=== PATIENT | male | born 1950 | race Caucasian/White ===

== ENCOUNTER 2017-06-15 15:19 | Observation (INO) | payer MEDICARE ==
[~2017-06-15] VITALS: Ht 170.2 cm; Wt 63.5 kg
[~2017-06-15 15:19] MED LIST: ALPR-557 GT; ALPR0.5T3 PO; CARV12.53 PO; CARV25TA PO; HYDR-2890 PO; TRAZ-144 PO
[2017-06-15] MEDS ORDERED: morphine INJ 10 MG/ML 1ML (SYR OR VIAL) IVP STA (16:05)
[2017-06-15] MEDS ORDERED: NS IV 1000 ML 1,000 ML IV ONE (16:05)
[2017-06-15 16:18] LABS: BILIRUBIN,URINE NEGATIVE (NEGATIVE); KETONES,URINE NEGATIVE (NEGATIVE); LEUKOCYTE ESTERASE ,URINE NEGATIVE (NEGATIVE); NITRITE,URINE NEGATIVE (NEGATIVE); PH,URINE 8 (5-9); PROTEIN,URINE NEGATIVE (NEGATIVE); UROBILINOGEN,URINE NORMAL (NORMAL)
[2017-06-15 16:20] LABS: BASOPHILS % (AUTO) 0 % (0-10); EOSINOPHILS # (AUTO) 0.3 10^3/uL (0.0-0.3); EOSINOPHILS % (AUTO) 2 % (0-10); LYMPHOCYTES # (AUTO) 2.4 X 10^3 (1.0-4.0); LYMPHOCYTES % (AUTO) 20 % (12-44); MEAN CORPUSCULAR HEMOGLOBIN 30 PG (25-34); MEAN CORPUSCULAR HGB CONC 33 G/DL (32-36); MEAN CORPUSCULAR VOLUME 89 FL (80-99); MEAN PLATELET VOLUME 9.7 FL (7.4-10.4); MONOCYTES # (AUTO) 1.8 X 10^3 (0.0-1.0); MONOCYTES % (AUTO) 15 % (0-12); NEUTROPHILS # (AUTO) 7.4 X 10^3 (1.8-7.8); NEUTROPHILS % (AUTO) 63 % (42-75); PLATELET COUNT 181 10^3/uL (130-400); RED BLOOD COUNT 5.04 10^6/uL (4.35-5.85); RED CELL DISTRIBUTION WIDTH 12.9 % (10.0-14.5); WHITE BLOOD COUNT 11.8 10^3/uL (4.3-11.0)
[2017-06-15 16:42] LABS: ALANINE AMINOTRANSFERASE 22 U/L (0-55); ALBUMIN 4.1 GM/DL (3.2-4.5); ANION GAP 11 MMOL/L (5-14); ASPARTATE AMINO TRANSFERASE 18 U/L (5-34); BILIRUBIN,TOTAL 1.1 MG/DL (0.1-1.0); CALCIUM 9.3 MG/DL (8.5-10.1); CARBON DIOXIDE 26 MMOL/L (21-32); CHLORIDE 104 MMOL/L (98-107); CREATININE SERUM 0.88 MG/DL (0.60-1.30); GFR ESTIMATED > 60; GLUCOSE 92 MG/DL (70-105); POTASSIUM 4.1 MMOL/L (3.6-5.0); SODIUM 141 MMOL/L (135-145); TOTAL PROTEIN 6.7 GM/DL (6.4-8.2)
[2017-06-15] MEDS ORDERED: NS 100 ML (IVPB) BAG IV ONE (17:00)
[2017-06-15] MEDS ORDERED: IOHEXOL 350 MG/ML 100 ML (OMNIPAQUE 350) VIAL IV ONE (17:00)
[2017-06-15 17:33] LABS: BLOOD UREA NITROGEN 15 MG/DL (7-18); BUN/CREATININE RATIO 17
--- NOTE | 2017-06-15 17:34 | ED Abdominal Pain ---
General Chief Complaint: Abdominal/GI Problems Stated Complaint: ABDOMINAL PAIN Nursing Triage Note: Pt c/o abd tenderness x24 hours. Pt denies n/v/d. Pt also c/o general malaise. Sepsis Screen: No Definite Risk History of Present Illness Time Seen By Provider: 15:50 Initial Comments Evaluation for acute abdominal pain. Patient was evaluated in Dr. Benitez's office earlier today and referred here for further exams. Timing/Duration: 1-2 Days Severity/Quality: Moderate (4-6/10) Location: Generalized Abdomen Radiation: No Radiation Activities at Onset: None Modifying Factors: Improves With Resting Associated Symptoms: Denies Symptoms Allergies and Home Medications Allergies Uncoded Allergies: antivenom (Allergy, Unknown, 06/27/14) Home Medications Alprazolam 0.5 Mg Tab, 0.5 MG GT HS, (Reported) Alprazolam 0.5 Mg Tab.sr.24h, 0.5 MG PO HS, (Reported) Carvedilol 12.5 Mg Tablet, 1 EACH PO AM, (Reported) Carvedilol 25 Mg Tablet, 1 EACH PO PM, (Reported) 18MG IN THE AM Hydrocodone Bit/Acetaminophen 1 Each Tablet, 1 EACH PO, (Reported) Trazodone Hcl 50 Mg Tablet, 100 MG PO for HS, (Reported) Review of Systems Constitutional: no symptoms reported, see HPI Gastrointestinal: See HPI, Abdominal Pain, Denies Diarrhea, Denies Nausea, Poor Appetite, Denies Vomiting All Other Systems Reviewed Negative Unless Noted: Yes Past Qhnyruc-Wzyelb-Gdakml Hx Patient Social History Alcohol Use: Denies Use Recreational Drug Use: No Smoking Status: Never a Smoker Recent Foreign Travel: No Contact w/Someone Who Travel: No Recent Infectious Disease Expo: No Recent Hopitalizations: No Seasonal Allergies Seasonal Allergies: No Surgeries HX Surgeries: Yes (HERNIA ) Respiratory Hx Respiratory Disorders: No Cardiovascular Hx Cardiac Disorders: Yes (PACEMAKER ) Neurological Hx Neurological Disorders: No Reviewed Nursing Assessment Reviewed/Agree w Nursing PMH: Yes Physical Exam Vital Signs VS - Last 72 Hours, by Label 06/15/17 16:02 Temp 100.3 Pulse 79 Resp 18 B/P (MAP) 127/76 Pulse Ox 98 O2 Delivery Room Air Capillary Refill : Less Than 3 Seconds General Appearance: WD/WN, no apparent distress HEENT: PERRL/EOMI, normal ENT inspection, TMs normal, pharynx normal Neck: non-tender, full range of motion, supple, normal inspection Respiratory: chest non-tender, lungs clear, normal breath sounds Cardiovascular: normal peripheral pulses, regular rate, rhythm, other ( pacemaker present) Gastrointestinal: normal bowel sounds, soft, No distended, guarding, No rebound , tenderness (generalized), other (negative Gonzalez sign) Extremities: normal range of motion, non-tender, normal inspection, no pedal edema, no calf tenderness, normal capillary refill Back: normal inspection, no CVA tenderness Neurologic/Psychiatric: no motor/sensory deficits, alert, normal mood/affect, oriented x 3 Skin: normal color, warm/dry Lymphatic: no adenopathy Progress/Results/Core Measures Results/Orders Lab Results Laboratory Tests Test 06/15/17 16:08 06/15/17 16:12 Range/Units Urine Color YELLOW Urine Clarity CLEAR Urine pH 8 5-9 Urine Specific Amity 1.010 L 1.016-1.022 Urine Protein NEGATIVE NEGATIVE Urine Glucose (UA) NEGATIVE NEGATIVE Urine Ketones NEGATIVE NEGATIVE Urine Nitrite NEGATIVE NEGATIVE Urine Bilirubin NEGATIVE NEGATIVE Urine Urobilinogen NORMAL NORMAL MG/DL Urine Leukocyte Esterase NEGATIVE NEGATIVE Urine RBC (Auto) 1+ H NEGATIVE Urine RBC 0-2 /HPF Urine WBC NONE /HPF Urine Crystals NONE /LPF Urine Bacteria NONE /HPF Urine Casts NONE /LPF Urine Mucus NEGATIVE /LPF Urine Culture Indicated NO White Blood Count 11.8 H 4.3-11.0 10^3/uL Red Blood Count 5.04 4.35-5.85 10^6/uL Hemoglobin 14.9 13.3-17.7 G/DL Hematocrit 45 40-54 % Mean Corpuscular Volume 89 80-99 FL Mean Corpuscular Hemoglobin 30 25-34 PG Mean Corpuscular Hemoglobin Concent 33 32-36 G/DL Red Cell Distribution Width 12.9 10.0-14.5 % Platelet Count 181 130-400 10^3/uL Mean Platelet Volume 9.7 7.4-10.4 FL Neutrophils (%) (Auto) 63 42-75 % Lymphocytes (%) (Auto) 20 12-44 % Monocytes (%) (Auto) 15 H 0-12 % Eosinophils (%) (Auto) 2 0-10 % Basophils (%) (Auto) 0 0-10 % Neutrophils # (Auto) 7.4 1.8-7.8 X 10^3 Lymphocytes # (Auto) 2.4 1.0-4.0 X 10^3 Monocytes # (Auto) 1.8 H 0.0-1.0 X 10^3 Eosinophils # (Auto) 0.3 0.0-0.3 10^3/uL Basophils # (Auto) 0.0 0.0-0.1 10^3/uL Sodium Level 141 135-145 MMOL/L Potassium Level 4.1 3.6-5.0 MMOL/L Chloride Level 104 98-107 MMOL/L Carbon Dioxide Level 26 21-32 MMOL/L Anion Gap 11 5-14 MMOL/L Blood Urea Nitrogen 15 7-18 MG/DL Creatinine 0.88 0.60-1.30 MG/DL Estimat Glomerular Filtration Rate > 60 BUN/Creatinine Ratio 17 Glucose Level 92 70-105 MG/DL Calcium Level 9.3 8.5-10.1 MG/DL Total Bilirubin 1.1 H 0.1-1.0 MG/DL Aspartate Amino Transf (AST/SGOT) 18 5-34 U/L Alanine Aminotransferase (ALT/SGPT) 22 0-55 U/L Alkaline Phosphatase 22 L 40-136 U/L Total Protein 6.7 6.4-8.2 GM/DL Albumin 4.1 3.2-4.5 GM/DL My Orders Orders - SAWYER MARSHALL Cbc With Automated Diff (06/15/17 16:04) Comprehensive Metabolic Panel (06/15/17 16:04) Ua Culture If Indicated (06/15/17 16:04) Ct Abdomen/Pelvis W (06/15/17 16:04) Saline Lock/Iv-Start (06/15/17 16:05) Ns Iv 1000 Ml (Sodium Chloride 0.9%) (06/15/17 16:05) Morphine Injection (Morphine Injection (06/15/17 16:05) Iohexol Injection (Omnipaque 350 Mg/Ml 1 (06/15/17 17:00) Ns (Ivpb) (Sodium Chloride 0.9% Ivpb Bag (06/15/17 17:00) Medications Given in ED Current Medications Medications Dose Ordered Sig/Angel Route Start Time Stop Time Status Last Admin Dose Admin Iohexol 100 ml ONCE ONCE IV 06/15/17 17:00 06/15/17 17:01 DC 06/15/17 17:13 100 ML Sodium Chloride 100 ml ONCE ONCE IV 06/15/17 17:00 06/15/17 17:01 DC 06/15/17 17:13 80 ML Sodium Chloride 1,000 ml @ 0 mls/hr Q0M ONCE IV 06/15/17 16:05 06/15/17 16:07 DC 06/15/17 16:19 999 MLS/HR Vital Signs/I&O Vital Sign - Last 12Hours 06/15/17 16:02 Temp 100.3 Pulse 79 Resp 18 B/P (MAP) 127/76 Pulse Ox 98 O2 Delivery Room Air Blood Pressure Mean: 93 Progress Note : Time: 15:50 Progress Note Initial evaluation completed, we'll obtain CT abdomen and pelvis, CBC, UA and CMP. IV 1 L normal saline, morphine 5 mg IV for pain. 1645 results of studies reviewed with patient. Pain is currently minimal. He denies any need for additional pain medication and has no nausea. 1720 discussed results of exam, labs and diagnostic studies with Dr. Benitez, agreed admission is indicated with recommendations for consulting Dr. Willett for general surgery tomorrow. Diagnostic Imaging Diagonstic Imaging: CT Plain Films/CT/US/NM/MRI: abdomen, pelvis Comments NAME: BRIANNE ZELAYA Janey [facility] REC#: [id number] PT STATUS: REG ER : 1950 PHYSICIAN: SAWYER MARSHALL ADMIT DATE: 06/15/17/ER Draft Date of Exam:06/15/17 CT ABDOMEN/PELVIS W PROCEDURE: CT abdomen and pelvis with contrast. TECHNIQUE: Multiple contiguous axial images were obtained through the abdomen and pelvis after administration of intravenous contrast. INDICATION: Abdominal pain, history of hernia. COMPARISON: 06/06/2015. FINDINGS: Lung bases are clear. The gallbladder and solid organs are grossly normal. Vascular structures are intact. The course and caliber of the small bowel is normal. There is no free air or free fluid. There is moderate inflammatory change with diverticulosis of the sigmoid colon. This likely represents nonruptured diverticulitis. There is no abscess. Trace free fluid is seen. Distal ureters and urinary bladder are grossly normal. 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 This is unchanged. Osseous structures are stable. IMPRESSION: 1. Diverticulosis with acute diverticulitis and associated trace free fluid in the pelvis. 2. No abscess or free air identified. 3. Follow-up examination is recommended to exclude inflammatory carcinoma of the sigmoid. Dictated on workstation # [id number] Dict: 06/15/17 1729 Trans: 06/15/17 1738 [id number] Interpreted by: LUZ KIRBY Electronically signed by: Reviewed: Reviewed by Me Departure Impression Impression: Primary Impression: Diverticulitis of intestine Qualified Codes: K57.32 - Diverticulitis of large intestine without perforation or abscess without bleeding Additional Impression: Abdominal wall pain Disposition: ADMITTED INPATIENT Condition: Stable Decision to Admit Reason: Admit from ER (General) Decision to Admit/Date: Jun 15, 2017 Time/Decision to Admit Time: 17:20 Departure-Patient Inst. Referrals: MERLIN BENITEZ DO (PCP/Family) Primary Care Physician Copy Copies To 1: MERLIN BENITEZ AMY ARNP Jun 15, 2017 17:34
--- NOTE | 2017-06-15 17:39 | Diagnostic Imaging Report ---
PROCEDURE: CT abdomen and pelvis with contrast. TECHNIQUE: Multiple contiguous axial images were obtained through the abdomen and pelvis after administration of intravenous contrast. INDICATION: Abdominal pain, history of hernia. COMPARISON: 06/06/2015. FINDINGS: Lung bases are clear. The gallbladder and solid organs are grossly normal. Vascular structures are intact. The course and caliber of the small bowel is normal. There is no free air or free fluid. There is moderate inflammatory change with diverticulosis of the sigmoid colon. This likely represents nonruptured diverticulitis. There is no abscess. Trace free fluid is seen. Distal ureters and urinary bladder are grossly normal. 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 This is unchanged. Osseous structures are stable. IMPRESSION: 1. Diverticulosis with acute diverticulitis and associated trace free fluid in the pelvis. 2. No abscess or free air identified. 3. Follow-up examination is recommended to exclude inflammatory carcinoma of the sigmoid. Dictated by: Dictated on workstation # [id number]
[2017-06-15 18:47] VITALS: BP 120/68
[2017-06-15] MEDS ORDERED: morphine INJ 10 MG/ML 1ML (SYR OR VIAL) IV PRN (19:15)
[2017-06-15] MEDS ORDERED: CATHETER FLUSH 10 ML SYR IV PRN (19:15)
[2017-06-15] MEDS ORDERED: ACETAMINOPHEN 325 MG TABLET/CAPLET (TYLENOL) PO PRN (19:15)
[2017-06-15] MEDS: NS IV 1000 ML 1,000 ML IV SCH (19:31)
[2017-06-15] MEDS: CIPROFLOXACIN IV 400MG/200ML 200 ML IV SCH (19:53)
[2017-06-15] MEDS ORDERED: metroNIDAZOLE 500MG/100ML IVPB 100 ML IV SCH (21:00)
[2017-06-15] MEDS ORDERED: RT-ALBUTEROL SULF 2.5 MG/3 ML PRE-MIX VIAL IH PRN (21:00)
[2017-06-16] VITALS: BP 89/51
[2017-06-16 04:00] VITALS: BP 86/51
[2017-06-16 05:31] LABS: BASOPHILS % (AUTO) 0 % (0-10); EOSINOPHILS # (AUTO) 0.1 10^3/uL (0.0-0.3); EOSINOPHILS % (AUTO) 1 % (0-10); LYMPHOCYTES # (AUTO) 1.8 X 10^3 (1.0-4.0); LYMPHOCYTES % (AUTO) 19 % (12-44); MEAN CORPUSCULAR HEMOGLOBIN 30 PG (25-34); MEAN CORPUSCULAR HGB CONC 33 G/DL (32-36); MEAN CORPUSCULAR VOLUME 90 FL (80-99); MEAN PLATELET VOLUME 9.8 FL (7.4-10.4); MONOCYTES # (AUTO) 1.5 X 10^3 (0.0-1.0); MONOCYTES % (AUTO) 16 % (0-12); NEUTROPHILS # (AUTO) 6.4 X 10^3 (1.8-7.8); NEUTROPHILS % (AUTO) 65 % (42-75); PLATELET COUNT 159 10^3/uL (130-400); RED BLOOD COUNT 4.26 10^6/uL (4.35-5.85); RED CELL DISTRIBUTION WIDTH 12.8 % (10.0-14.5); WHITE BLOOD COUNT 9.8 10^3/uL (4.3-11.0)
[2017-06-16 06:00] LABS: ALANINE AMINOTRANSFERASE 14 U/L (0-55); ALBUMIN 3.2 GM/DL (3.2-4.5); ANION GAP 7 MMOL/L (5-14); ASPARTATE AMINO TRANSFERASE 13 U/L (5-34); BILIRUBIN,TOTAL 1.1 MG/DL (0.1-1.0); BLOOD UREA NITROGEN 12 MG/DL (7-18); BUN/CREATININE RATIO 16; CALCIUM 8.2 MG/DL (8.5-10.1); CARBON DIOXIDE 24 MMOL/L (21-32); CHLORIDE 109 MMOL/L (98-107); CREATININE SERUM 0.75 MG/DL (0.60-1.30); GFR ESTIMATED > 60; GLUCOSE 106 MG/DL (70-105); POTASSIUM 3.9 MMOL/L (3.6-5.0); SODIUM 140 MMOL/L (135-145); TOTAL PROTEIN 5.2 GM/DL (6.4-8.2)
[2017-06-16 06:17] VITALS: BP 96/51
--- NOTE | 2017-06-16 07:48 | History & Physicial ---
History of Present Illness History of Present Illness Reason for visit/HPI chief complaint abdominal pain, GI problem. Patient came to the office yesterday complaining of abdominal pain onset Tuesday. Patient not eating yesterday. Pain radiated from 4 to 7 depending on the time. Pain is not localized all over the abdomen. Patient this morning is feeling better and demands to go home. Patient pain a 1 this morning. Date of Admission Jun 15, 2017 at 18:13 Time Seen by Provider: 07:40 I consulted on this patient on 06/16/17 07:43 Attending Physician Rodriguez Benitez DO Admitting Physician Rodriguez Benitez DO Consult Allergies and Home Medications Allergies Uncoded Allergies: antivenom (Allergy, Unknown, 06/27/14) Home Medications Alprazolam 0.5 Mg Tab, 0.5 MG GT HS, (Reported) Alprazolam 0.5 Mg Tab.sr.24h, 0.5 MG PO HS, (Reported) Carvedilol 12.5 Mg Tablet, 1 EACH PO AM, (Reported) Carvedilol 25 Mg Tablet, 1 EACH PO PM, (Reported) 18MG IN THE AM Hydrocodone Bit/Acetaminophen 1 Each Tablet, 1 EACH PO, (Reported) Trazodone Hcl 50 Mg Tablet, 100 MG PO for HS, (Reported) Past Wchvpfx-Ahlqpa-Rfwdry Hx Patient Social History Employed/Student: unemployed Alcohol Use: Denies Use Recreational Drug Use: No Smoking Status: Never a Smoker Physical Abuse Screen: No Sexual Abuse: No Recent Foreign Travel: No Contact w/other who traveled: No Recent Hopitalizations: No Recent Infectious Disease Expo: No Seasonal Allergies Seasonal Allergies: No Surgeries HX Surgeries: Yes (HERNIA ) Respiratory Hx Respiratory Disorders: No Cardiovascular Hx Cardiovascular Disorders: Yes (PACEMAKER ) Neurological Hx Neurological Disorders: No Reproductive System Sexually Transmitted Disease: No HIV/AIDS: No Musculoskeletal Musculoskeletal Disorders: Arthritis Cancer Cancer: Skin Blood Transfusions Adverse Reaction to a Blood Tr: No Reviewed Nursing Assessment Reviewed/Agree w Nursing PMH: Yes Family Medical History Family Hx: Diabetes mellitus G8 SISTER Constitutional: malaise, weakness, other (abdominal pain) EENTM: no symptoms reported Respiratory: no symptoms reported Cardiovascular: no symptoms reported Gastrointestinal: abdominal pain, other (abdominal pain all over the abdomen not localized) Genitourinary: no symptoms reported Skin: no symptoms reported Psychiatric/Neurological: No Symptoms Reported Physical Exam Vital Signs Vital Sign - Last 12Hours 06/15/17 16:02 Temp 100.3 Pulse 79 Resp 18 B/P (MAP) 127/76 Pulse Ox 98 O2 Delivery Room Air Capillary Refill : Less Than 3 Seconds General Appearance: No Apparent Distress, WD/WN, Thin Eyes: Bilateral Eye Normal Inspection HEENT: TMs Normal, Normal ENT Inspection Neck: Full Range of Motion, Normal Inspection Respiratory: Chest Non Tender, Lungs Clear, Normal Breath Sounds, No Accessory Muscle Use, No Respiratory Distress Cardiovascular: Regular Rate, Rhythm, No Murmur Gastrointestinal: Other (pain to palpation yesterday, better today) Assessment/Plan Assessment and Plan acute diverticulitis. Abdominal pain. Diverticulosis. Patient told he needs a colonoscopy. Have consult with surgeon to be done later. Patient demanding on going home. Patient sent home on a diverticulitis diet. Patient sent home on Flagyl and Cipro. 2 office on Tuesday. If has any problems to come back the left this before Problems: Clinical Quality Measures DVT/VTE Risk/Contraindication: Risk Factor Score Per Nursin RFS Level Per Nursing on Admit: 2=Moderate RODRIGUEZ BENITEZ DO Jun 16, 2017 07:48
[2017-06-16] MEDS: CIPROFLOXACIN IV 400MG/200ML 200 ML IV SCH (08:29)
[2017-06-16] MEDS: NS IV 1000 ML 1,000 ML IV SCH (08:44)
[2017-06-16 08:55] VITALS: BP 117/74
[2017-06-16] MEDS ORDERED: MELA1TAB15 PO (09:43)
[2017-06-16] MEDS ORDERED: UBID100C44 PO (09:43)
[2017-06-16] MEDS ORDERED: MAGN250T2 PO (09:43)
[2017-06-16] MEDS ORDERED: CARV25TA PO (09:43)
[2017-06-16] MEDS ORDERED: ALPR0.5T7 PO (09:43)
[2017-06-16] MEDS ORDERED: MULT1TAB69 PO (09:43)
[2017-06-16] MEDS ORDERED: TRAZ100T92 PO (09:43)
[2017-06-16] MEDS ORDERED: CIPR-225 PO (09:51)
[2017-06-16] MEDS ORDERED: METR500T PO (09:51)
[2017-06-16 10:15] VITALS: BP 117/74
--- NOTE | 2017-06-17 07:17 | Clinic Account Progress/Dx ---
Clinic Account Progress/Dx DIAGNOSIS: Time Seen by Provider: 07:15 Diagnosis acute abdominal pain due to sigmoid diverticulitis MERLIN BENITEZ DO Jun 17, 2017 07:17
--- OUTSIDE RECORDS SUMMARY | 2017-06-23 00:09 | XMS REPORT | Continuity of Care Document ---
Author Author [facility] Organization [facility] Address Unknown Phone Unavailable Allergies Active Description Code Type Severity Reaction Onset Reported/Identified Relationship to Patient Clinical Status Yes antivenom antivenom Unknown N/A 06/27/2014 Medications Problems Date Dx Coded Attending Type Code Diagnosis Diagnosed By 06/27/2014 OWEN RENO MD Ot 451.82 PHLEBITIS THROMBOPHLEBITIS,SUP VEINS U 06/27/2014 OWEN RENO MD Ot 729.81 SWELLING OF LIMB 07/02/2015 MERLIN BENITEZ DO Ot 783.21 07/02/2015 MERLIN BENITEZ DO Ot 593.9 07/21/2015 MERLIN BENITEZ DO Ot 783.21 06/21/2016 RADHA MCCLELLAN MD Ot G47.33 OBSTRUCTIVE SLEEP APNEA (ADULT) (PEDIATR 06/22/2016 RADHA MCCLELLAN MD Ot G47.33 OBSTRUCTIVE SLEEP APNEA (ADULT) (PEDIATR 06/22/2016 RADHA MCCLELLAN MD Ot R06.83 SNORING 06/30/2016 RADHA MCCLELLAN MD Ot R06.83 SNORING 11/19/2016 KERWIN MARTINEZ MD Ot R19.7 DIARRHEA, UNSPECIFIED 11/19/2016 KERWIN MARTINEZ MD Ot Z79.899 OTHER DETENTION (CURRENT) DRUG THERAPY 11/19/2016 KERWIN MARTINEZ MD Ot Z95.0 PRESENCE OF CARDIAC PACEMAKER 11/21/2016 MERLIN BENITEZ DO Ot 783.21 LOSS OF WEIGHT 11/21/2016 MERLIN BENITEZ DO Ot 593.9 RENAL URETERAL DIS NOS 11/23/2016 KERWIN MARTINEZ MD Ot R19.7 DIARRHEA, UNSPECIFIED 11/23/2016 KERWIN MARTINEZ MD Ot Z79.899 OTHER DETENTION (CURRENT) DRUG THERAPY 11/23/2016 KERWIN MARTINEZ MD Ot Z95.0 PRESENCE OF CARDIAC PACEMAKER 06/15/2017 MERLIN BENITEZ DO Ot 783.21 LOSS OF WEIGHT 06/15/2017 MERLIN BENITEZ DO Ot 593.9 RENAL URETERAL DIS NOS 06/16/2017 MERLIN BENITEZ DO Ot K57.32 DVTRCLI OF LG INT W/O PERFORATION OR ABS 06/16/2017 MERLIN BENITEZ DO Ot Z79.899 OTHER DETENTION (CURRENT) DRUG THERAPY 06/16/2017 MERLIN BENITEZ DO Ot Z95.0 PRESENCE OF CARDIAC PACEMAKER Procedures Results Test Result Range Complete blood count (CBC) with automated white blood cell (WBC) differential - 11/19/16 11:55 Blood leukocytes automated count (number/volume) 6.5 10*3/ uL 4.3-11.0 Blood erythrocytes automated count (number/volume) 5.18 10*6 /uL 4.35-5.85 Venous blood hemoglobin measurement (mass/volume) 15.3 g/dL 13.3-17.7 Blood hematocrit (volume fraction) 45 % 40-54 Automated erythrocyte mean corpuscular volume 87 [foz_us] 80-99 Automated erythrocyte mean corpuscular hemoglobin (mass per erythrocyte) 30 pg 25-34 Automated erythrocyte mean corpuscular hemoglobin concentration measurement ( mass/volume) 34 g/dL 32-36 Automated erythrocyte distribution width ratio 12.7 % 10.0-14.5 Automated blood platelet count (count/volume) 206 10*3/uL 130-400 Automated blood platelet mean volume measurement 9.8 [foz_us ] 7.4-10.4 Automated blood neutrophils/100 leukocytes 47 % 42-75 Automated blood lymphocytes/100 leukocytes 32 % 12-44 Blood monocytes/100 leukocytes 16 % 0-12 Automated blood eosinophils/100 leukocytes 5 % 0-10 Automated blood basophils/100 leukocytes 0 % 0-10 Blood neutrophils automated count (number/volume) 3.1 10*3 1.8-7.8 Blood lymphocytes automated count (number/volume) 2.1 10*3 1.0-4.0 Blood monocytes automated count (number/volume) 1.0 10*3 0.0-1.0 Automated eosinophil count 0.3 10*3/uL 0.0-0.3 Automated blood basophil count (count/volume) 0.0 10*3/uL 0.0-0.1 Comprehensive metabolic panel - 11/19/16 11:55 Serum or plasma sodium measurement (moles/volume) 140 mmol/ L 135-145 Serum or plasma potassium measurement (moles/volume) 3.9 mmol/L 3.6-5.0 Serum or plasma chloride measurement (moles/volume) 107 mmol /L 98-107 Carbon dioxide 24 mmol/L 21-32 Serum or plasma anion gap determination (moles/volume) 9 mmol/L 5-14 Serum or plasma urea nitrogen measurement (mass/volume) 17 mg/dL 7-18 Serum or plasma creatinine measurement (mass/volume) 0.90 mg /dL 0.60-1.30 Serum or plasma urea nitrogen/creatinine mass ratio 19 NRG Serum or plasma creatinine measurement with calculation of estimated glomerular filtration rate > NRG Serum or plasma glucose measurement (mass/volume) 88 mg/dL 70-105 Serum or plasma calcium measurement (mass/volume) 9.4 mg/dL 8.5-10.1 Serum or plasma total bilirubin measurement (mass/volume) 0.8 mg/dL 0.1-1.0 Serum or plasma alkaline phosphatase measurement (enzymatic activity/volume) 21 U/L 40-136 Serum or plasma aspartate aminotransferase measurement (enzymatic activity/ volume) 24 U/L 5-34 Serum or plasma alanine aminotransferase measurement (enzymatic activity/volume ) 33 U/L 0-55 Serum or plasma protein measurement (mass/volume) 6.4 g/dL 6.4-8.2 Serum or plasma albumin measurement (mass/volume) 4.4 g/dL 3.2-4.5 Complete urinalysis with reflex to culture - 11/19/16 12:31 Urine color determination YELLOW NRG Urine clarity determination CLEAR NRG Urine pH measurement by test strip 8 5- 9 Specific gravity of urine by test strip 1.010 1.016-1.022 Urine protein assay by test strip, semi-quantitative NEGATIVE NEGATIVE Urine glucose detection by automated test strip NEGATIVE NEGATIVE Erythrocytes detection in urine sediment by light microscopy NEGATIVE NEGATIVE Urine ketones detection by automated test strip NEGATIVE NEGATIVE Urine nitrite detection by test strip NEGATIVE NEGATIVE Urine total bilirubin detection by test strip NEGATIVE NEGATIVE Urine urobilinogen measurement by automated test strip (mass/volume) NORMAL NORMAL Urine leukocyte esterase detection by dipstick NEGATIVE NEGATIVE Automated urine sediment erythrocyte count by microscopy (number/high power field) NONE NRG Automated urine sediment leukocyte count by microscopy (number/high power field ) NONE NRG Bacteria detection in urine sediment by light microscopy NEGATIVE NRG Squamous epithelial cells detection in urine sediment by light microscopy NONE NRG Crystals detection in urine sediment by light microscopy NONE NRG Casts detection in urine sediment by light microscopy NONE NRG Mucus detection in urine sediment by light microscopy NEGATIVE NRG Complete urinalysis with reflex to culture NO NRG Complete urinalysis with reflex to culture - 06/15/17 16:08 Urine color determination YELLOW NRG Urine clarity determination CLEAR NRG Urine pH measurement by test strip 8 5- 9 Specific gravity of urine by test strip 1.010 1.016-1.022 Urine protein assay by test strip, semi-quantitative NEGATIVE NEGATIVE Urine glucose detection by automated test strip NEGATIVE NEGATIVE Erythrocytes detection in urine sediment by light microscopy 1+ NEGATIVE Urine ketones detection by automated test strip NEGATIVE NEGATIVE Urine nitrite detection by test strip NEGATIVE NEGATIVE Urine total bilirubin detection by test strip NEGATIVE NEGATIVE Urine urobilinogen measurement by automated test strip (mass/volume) NORMAL NORMAL Urine leukocyte esterase detection by dipstick NEGATIVE NEGATIVE Automated urine sediment erythrocyte count by microscopy (number/high power field) [HPF] NRG Automated urine sediment leukocyte count by microscopy (number/high power field ) NONE NRG Bacteria detection in urine sediment by light microscopy NONE NRG Crystals detection in urine sediment by light microscopy NONE NRG Casts detection in urine sediment by light microscopy NONE NRG Mucus detection in urine sediment by light microscopy NEGATIVE NRG Complete urinalysis with reflex to culture NO NRG Complete blood count (CBC) with automated white blood cell (WBC) differential - 06/15/17 16:12 Blood leukocytes automated count (number/volume) 11.8 10*3/ uL 4.3-11.0 Blood erythrocytes automated count (number/volume) 5.04 10*6 /uL 4.35-5.85 Venous blood hemoglobin measurement (mass/volume) 14.9 g/dL 13.3-17.7 Blood hematocrit (volume fraction) 45 % 40-54 Automated erythrocyte mean corpuscular volume 89 [foz_us] 80-99 Automated erythrocyte mean corpuscular hemoglobin (mass per erythrocyte) 30 pg 25-34 Automated erythrocyte mean corpuscular hemoglobin concentration measurement ( mass/volume) 33 g/dL 32-36 Automated erythrocyte distribution width ratio 12.9 % 10.0-14.5 Automated blood platelet count (count/volume) 181 10*3/uL 130-400 Automated blood platelet mean volume measurement 9.7 [foz_us ] 7.4-10.4 Automated blood neutrophils/100 leukocytes 63 % 42-75 Automated blood lymphocytes/100 leukocytes 20 % 12-44 Blood monocytes/100 leukocytes 15 % 0-12 Automated blood eosinophils/100 leukocytes 2 % 0-10 Automated blood basophils/100 leukocytes 0 % 0-10 Blood neutrophils automated count (number/volume) 7.4 10*3 1.8-7.8 Blood lymphocytes automated count (number/volume) 2.4 10*3 1.0-4.0 Blood monocytes automated count (number/volume) 1.8 10*3 0.0-1.0 Automated eosinophil count 0.3 10*3/uL 0.0-0.3 Automated blood basophil count (count/volume) 0.0 10*3/uL 0.0-0.1 Comprehensive metabolic panel - 06/15/17 16:12 Serum or plasma sodium measurement (moles/volume) 141 mmol/ L 135-145 Serum or plasma potassium measurement (moles/volume) 4.1 mmol/L 3.6-5.0 Serum or plasma chloride measurement (moles/volume) 104 mmol /L 98-107 Carbon dioxide 26 mmol/L 21-32 Serum or plasma anion gap determination (moles/volume) 11 mmol/L 5-14 Serum or plasma urea nitrogen measurement (mass/volume) 15 mg/dL 7-18 Serum or plasma creatinine measurement (mass/volume) 0.88 mg /dL 0.60-1.30 Serum or plasma urea nitrogen/creatinine mass ratio 17 NRG Serum or plasma creatinine measurement with calculation of estimated glomerular filtration rate > NRG Serum or plasma glucose measurement (mass/volume) 92 mg/dL 70-105 Serum or plasma calcium measurement (mass/volume) 9.3 mg/dL 8.5-10.1 Serum or plasma total bilirubin measurement (mass/volume) 1.1 mg/dL 0.1-1.0 Serum or plasma alkaline phosphatase measurement (enzymatic activity/volume) 22 U/L 40-136 Serum or plasma aspartate aminotransferase measurement (enzymatic activity/ volume) 18 U/L 5-34 Serum or plasma alanine aminotransferase measurement (enzymatic activity/volume ) 22 U/L 0-55 Serum or plasma protein measurement (mass/volume) 6.7 g/dL 6.4-8.2 Serum or plasma albumin measurement (mass/volume) 4.1 g/dL 3.2-4.5 Complete blood count (CBC) with automated white blood cell (WBC) differential - 06/16/17 04:58 Blood leukocytes automated count (number/volume) 9.8 10*3/ uL 4.3-11.0 Blood erythrocytes automated count (number/volume) 4.26 10*6 /uL 4.35-5.85 Venous blood hemoglobin measurement (mass/volume) 12.6 g/dL 13.3-17.7 Blood hematocrit (volume fraction) 38 % 40-54 Automated erythrocyte mean corpuscular volume 90 [foz_us] 80-99 Automated erythrocyte mean corpuscular hemoglobin (mass per erythrocyte) 30 pg 25-34 Automated erythrocyte mean corpuscular hemoglobin concentration measurement ( mass/volume) 33 g/dL 32-36 Automated erythrocyte distribution width ratio 12.8 % 10.0-14.5 Automated blood platelet count (count/volume) 159 10*3/uL 130-400 Automated blood platelet mean volume measurement 9.8 [foz_us ] 7.4-10.4 Automated blood neutrophils/100 leukocytes 65 % 42-75 Automated blood lymphocytes/100 leukocytes 19 % 12-44 Blood monocytes/100 leukocytes 16 % 0-12 Automated blood eosinophils/100 leukocytes 1 % 0-10 Automated blood basophils/100 leukocytes 0 % 0-10 Blood neutrophils automated count (number/volume) 6.4 10*3 1.8-7.8 Blood lymphocytes automated count (number/volume) 1.8 10*3 1.0-4.0 Blood monocytes automated count (number/volume) 1.5 10*3 0.0-1.0 Automated eosinophil count 0.1 10*3/uL 0.0-0.3 Automated blood basophil count (count/volume) 0.0 10*3/uL 0.0-0.1 Comprehensive metabolic panel - 06/16/17 04:58 Serum or plasma sodium measurement (moles/volume) 140 mmol/ L 135-145 Serum or plasma potassium measurement (moles/volume) 3.9 mmol/L 3.6-5.0 Serum or plasma chloride measurement (moles/volume) 109 mmol /L 98-107 Carbon dioxide 24 mmol/L 21-32 Serum or plasma anion gap determination (moles/volume) 7 mmol/L 5-14 Serum or plasma urea nitrogen measurement (mass/volume) 12 mg/dL 7-18 Serum or plasma creatinine measurement (mass/volume) 0.75 mg /dL 0.60-1.30 Serum or plasma urea nitrogen/creatinine mass ratio 16 NRG Serum or plasma creatinine measurement with calculation of estimated glomerular filtration rate > NRG Serum or plasma glucose measurement (mass/volume) 106 mg/dL 70-105 Serum or plasma calcium measurement (mass/volume) 8.2 mg/dL 8.5-10.1 Serum or plasma total bilirubin measurement (mass/volume) 1.1 mg/dL 0.1-1.0 Serum or plasma alkaline phosphatase measurement (enzymatic activity/volume) 20 U/L 40-136 Serum or plasma aspartate aminotransferase measurement (enzymatic activity/ volume) 13 U/L 5-34 Serum or plasma alanine aminotransferase measurement (enzymatic activity/volume ) 14 U/L 0-55 Serum or plasma protein measurement (mass/volume) 5.2 g/dL 6.4-8.2 Serum or plasma albumin measurement (mass/volume) 3.2 g/dL 3.2-4.5 Encounters ACCT No. Visit Date/Time Discharge Status Pt. Type Provider Facility Loc./Unit Complaint [id number] 06/15/2017 18:13:00 2016 10:15:00 DIS Outpatient MERLIN BENITEZ DO [facility] 4TH ABD PAIN, DIVERTICULOSIS W/ ACUTE DIVERTICULITIS [id number] 11/19/2016 11:37:00 2015 14:35:00 DIS Emergency JUAN WHITTINGTON, KERWIN Ochoa [facility] ER DIARRHEA [id number] 06/21/2016 23:26:00 2015 06:45:00 DIS Outpatient VY WHITTINGTON, RADHA Junior [facility] SLEEP KENDRICK,SNORING,ARRHYTHMIAS,ISCHEMIC HEART DISEASE [id number] 06/06/2015 09:14:00 2014 23:59:59 CLS Outpatient MERLIN BENITEZ DO [facility] RAD WT LOSS, PROBLEM EATING [id number] 06/03/2015 13:32:00 2014 23:59:59 CLS Outpatient MERLIN BENITEZ DO [facility] LAB LA NENA INSUF [id number] 06/27/2014 13:15:00 2013 14:55:00 DIS Troy RENO MD, OWEN [facility] ER LEFT ARM VEIN SWELLING
--- OUTSIDE RECORDS SUMMARY | 2017-06-23 00:09 | XMS REPORT | Clinical Summary ---
Author Author [facility] Organization [facility] Address Unknown Phone Unavailable Care Team Providers Care Special Agent Fbi Name Role Phone PCP Unavailable Source Comments Some departments are not documenting in the electronic medical record. If you do not see the information that you expected, contact Release of Information in the Health Information Management department at [phone] for further assistance in locating additional records.[facility] Allergies Active Allergy Reactions Severity Noted Date Comments Unclassified Drug SEE COMMENTS 01/23/2014 [place] antivenum with decrease blood pressure, itching at the site Oxycodone SEE COMMENTS 01/23/2014 Depressed breathing Current Medications Prescription Sig. Disp. Refills Start End Date Status Date ALPRAZolam (XANAX) 0.5 mg Take 0.5 mg by mouth at Active tablet bedtime as needed. traZODone (DESYREL) 50 mg Take 50 mg by mouth as Active tablet directed. 50mg or 100mg as needed for sleep carvedilol (COREG) 25 mg Take 1/2 tablet (12.5mg) 135 Tab 3 05/30/20 Active tablet by month every morning 17 and 1 tablet (25mg) by mouth every evening. carvedilol (COREG) 25 mg Take 12.5mg (1/2 tab) am 180 Tab 3 04/23/20 05/30/20 Discontin tabletIndications: and 25mg (full tab) in 16 17 ued Secondary hypertension, the pm. unspecified, Cardiomyopathy (HCC) Active Problems Problem Noted Date Paroxysmal a-fib (HCC) 03/09/2017 Mechanical breakdown of cardiac pulse generator 11/11/2016 Overview: 2016 SJM Advisory for Premature Battery Depletion - addressed at OV 10/19/16 Peyronie's disease 03/16/2015 Overview: 3 month duration with onset after hernia repair. Continued mild penile pain and ventral curvature Able to have intercourse and has good erections. L ast Assessment & Plan: Patient was given treatment options for Peyronie's disease including: observation, oral medical therapy, intralesional therapy including verapamil injection, Xiaflex (collagenase) injections, penile traction therapy, penile plication, incision and grafting, and penile prosthesis insertion. Risks and benefits were discussed. Info provided for penile traction. Pentoxifylline's off label use and risks were discussed including increased bleeding, dizziness, heart palpitations, liver dysfunction, and interaction with theophyline. NICM (nonischemic cardiomyopathy) ([facility]) 07/26/2014 Biventricular AICD malfunction 07/25/2014 Overview: LV Lead Dislodgement Biventricular implantable cardioverter-defibrillator in situ 07/22/2014 LBBB (left bundle branch block) 05/10/2014 CHF (congestive heart failure), NYHA class II ([facility]) 05/10/2014 Cardiomyopathy ([facility]) 05/09/2014 Hypertension 01/23/2014 Mitral valve regurgitation 01/23/2014 Left ventricular dysfunction 01/23/2014 Encounters Date Type Specialty Care Team Description 06/21/2017 [facility] Cardiology Quang Mistry MD Arrived Encounter 06/15/2017 Telephone Cardiology Karlie Schultz RN Pain (pain in belly x2 days. ) 05/30/2017 Refill Cardiology Quang Mistry MD Medication Refill 04/14/2017 Telephone Cardiology Rosetta Yoder, REMY Echo Results (Stable) 04/08/2017 Hospital Cardiology Quang Mistry MD Encounter 03/25/2017 Telephone Cardiology Jie Mathews LPN Results (ct chest ) 03/24/2017 Hospital Radiology Quang Mistry MD Encounter 03/24/2017 Office Visit Cardiology Quang Mistry MD Cardiac Eval (PAF;started Eliquis) 03/24/2017 Hospital Cardiology Quang Mistry MD Encounter 03/24/2017 Procedure Pass Radiology from Last 3 Months Family History Medical History Relation Name Comments Hypertension Father Diabetes Sister Relation Name Status Comments Brother Alive Brother Alive Father low sugar, pneumonia. Went to sleep and went into coma with left vascular surgery Mother Alive Mitral valve prolasp Sister diabetes (Age 44) Sister Alive Social History Tobacco Use Types Packs/Day Years Used Date Former Smoker Cigarettes 1 10 Quit: 11/28/1993 Smokeless Tobacco: Never Used Alcohol Use Drinks/Week oz/Week Comments Yes 1 Cans of 0.6 2-6 beers nightly beer Sex Assigned at Date Recorded Not on file Last Filed Vital Signs Vital Sign Reading Time Taken Blood Pressure 109/69 04/08/2017 3:01 PM CDT Pulse 68 03/24/2017 1:10 PM CDT Temperature 36.2 C (97.2 F) 12/20/2014 12:18 PM APPEALS COORDINATOR Respiratory Rate 16 12/20/2014 12:18 PM APPEALS COORDINATOR Oxygen Saturation 96% 07/02/2016 12:37 PM CDT Inhaled Oxygen - - Concentration Weight 63.5 kg (140 lb) 04/08/2017 3:01 PM CDT Height 170.2 cm (5' 7") 04/08/2017 3:01 PM CDT Body Mass Index 21.93 04/08/2017 3:01 PM CDT Plan of Treatment Health Maintenance Due Date Last Done Comments HEPATITIS C SCREENING 1949 PHYSICAL (COMPREHENSIVE) 1956 EXAM PERTUSSIS VACCINE 1960 TETANUS VACCINE 1966 COLORECTAL CANCER 1999 SCREENING SHINGLES VACCINE 2009 ABDOMINAL AORTIC ANEURYSM 2014 SCREENING PREVNAR/PNEUMOVAX (#1) 2014 INFLUENZA VACCINE 07/29/2017 Results * 2-D + DOPPLER ECHOCARDIOGRAM (04/08/2017 3:01 PM) Component Value Ref Range BSA 1.73 m2 ECHO EF 25 % Referring Provider CV ECHO PV NUTRITION FACULTY MEMBER Interp Only Faculty Dean Height (in) in Weight Lbs lbs Rt Systolic BP Rt Diastolic BP mmHg LVIDD 6.0 4.2 - 5.9 cm LVIDS 5.5 cm IVS 0.9 0.6 - 1.0 cm PW 0.9 0.6 - 1.0 cm FS 8.33 28 - 44 % EF 14.16 % LA size 3.5 3.0 - 4.0 cm Left Ventricle Systolic 22 - 58 mL Volume Left Ventricle Systolic 12 - 30 mL Volume Index Left Ventricle Diastolic 67 - 155 mL Volume Left Ventricle Diastolic 35 - 75 mL Volume Index LA volume 49.9 18 - 58 mL Left Atrium Index 28.84 10 - 32 LV mass 96 - 200 g Left Ventricle Mass Index 50 - 102 g/m2 Right Ventricular Basal 2.6 cm (2.4-4.2) Diameter Right Atrial Area 12.0 cm2 (<=18) Right Ventricular Mid 1.8 cm (2.0-3.5) Diameter Right Atrial Major cm (<=5.3) Dimension Right Ventricular Long 5.2 cm (5.6-8.6) Diameter Right Atrial Minor cm (<=4.4) Dimension Right Ventricular Wall cm (<=0.5) Ao root annulus 1.4 - 2.6 cm Sinus 3.1 2.1 - 3.5 cm STJ 1.7 - 3.4 cm Proximal aorta 2.1 - 3.4 cm Ascending aorta 2.0 - 3.6 cm Aortic arch 2.0 - 3.6 cm MPA annulus 1.0 - 2.2 cm MPA annulus 0.9 - 2.9 cm Left pulmonary artery 0.6 - 1.4 cm Right pulmonary artery 0.7 - 1.7 cm IVC ostium cm IVC proximal cm LVOT diameter cm LVOT area cm2 LVOT peak el 0.5 m/s LVOT peak VTI cm AV peak velocity 1.1 m/s Ao VTI cm Aortic valve area= cm2 , with a mean gradient of mmHg and a peak gradient of mmHg AV index ([place] croix) 0.45 AV mean gradient post mmHg stress AV peak gradient post mmHg stress AV peak velocity post m/s stress AV valve area P1/2 post cm2 stress AV Comp diameter cm AV Comp area cm2 AV Comp VTI cm AV Comp SV cm3 AV Incomp diameter cm AV Incomp area cm2 AV Incomp VTI cm AV Incomp SV cm3 AV regurgitant volume cc Aortic valve regurgitant % fraction AV regurgitation pressure msec 1/2 time AV vena contracta cm AV Jet Height cm AV LVOT Height cm AV JH LVOTH Percent % PISA AR VN Nyquist AV Radius PISA AR Max El AV area PISA cm2 AV LVOT peak gradient mmHg grad vals mmHg AV LVOT preak gradient mmHg w/amyl nitrate AV LVOT preak gradient mmHg post stress MV mean gradient mmHg MV peak gradient mmHg MV VTI cm MV stenosis pressure 1/2 ms time MV valve area P1/2 cm2 MV valve area by cm2 planimetry MV valve area by cm2 continuity eq MV valve area PISA cm2 Vn Nyquist MS m/s PISA MS Radius cm MV Peak E El CW m/s PISA MS Angle Cor MV mean gradient post mmHg stress MV valve area P1/2 post cm2 stress PAP post stress mmHg MV Comp diameter cm MV Comp area cm2 MV Comp VTI cm MV Comp SV cm3 MV Incomp diameter cm MV Incomp area cm2 MV Incomp VTI cm MV Incomp SV cm3 MV regurgitant volume cc MV regurgitation fraction % MV vena contracta cm Vn Nyquist m/s Radius cm Mr max el m/s MR PISA EROA cm2 TV mean gradient mmHg TV peak gradient mmHg TV VTI TV stenosis pressure 1/2 ms time TV Valve Aea by P 1/2 Method TV Valve Area By cm2 Continuity Equation TV rest pulmonary artery n/a mmHg pressure TV peak systolic mmHg pulmonary PAP TV Comp diameter cm TV Comp area cm2 TV Comp VTI cm TV Comp SV cm3 TV Incomp diameter cm TV Incomp area cm2 TV Incomp VTI cm TV Incomp SV cm3 TV regurgitant volume cc TV regurgitation fraction % TV vena contracta cm PISA TR VN Nyquist PISA TR Radius TR Max El TV area PISA cm2 RVOT diamter cm RVOT area cm2 RVOT peak el m/s RVOT peak VTI cm PV mean gradient PV preak gradient mmHg PV valve area cm2 E/A ratio 0.51 IVRT msec Pulm vein S/D ratio TDI e' 0.050 m/s E/E' ratio 7.40 E wave decelartion time msec MV "A" wave duration msec Pulm vein "A" wave msec MV Peak E El PW 0.370 m/s MV Peak A El 0.730 m/s PV Peak S El m/s PV Peak D El m/s Right Heart Systolic TDI m/s S' Right Heart Systolic MPI Right Heart Systolic ET ms Right Heart Systolic TCO ms Right Heart Systolic cm Mmode TAPSE Right Heart Diastolic TV m/s Peak E Velociaty Right Heart Diastolic TV m/s Peak A Velociaty Right Heart Diastolic E msec Deceleration Time Right Heart Diastolic E/A Ratio Right Heart Diastolic E/e' Ratio LVOT stroke volume cm3 Qp:Qs ratio RVOT stroke volume cm3 Specimen Performing Laboratory OTHER OUTSIDE LAB Narrative LVEF=20-25% With Diffuse LV Hypokinesis, Mild Abnormal Septal Motion And Spherical Shape Mild Concentric LVH Moderate LV Dilatation Normal LV Wall Thickness Mild Mitral Valve Regurgitation Trace Aortic Valve Regurgitation Pacer Wire In Right Heart Chambers No Pericardial Effusion * CTA CHEST WO/W CONTRAST+POST IMPRESSION (03/24/2017 2:52 PM) Specimen Performing Laboratory [facility] RAD RESULTS Impressions 1. No evidence of pulmonary embolus. 2. No consolidating pulmonary infiltrate or pleural effusion. 3. Tiny nodule in the right middle lobe most likely represents a scar or granuloma. If there are no significant risk factors for pulmonary malignancy, no further follow-up of this nodule is required. Finalized by Harshal Ratliff M.D. on 03/24/2017 2:54 PM. Dictated by Harshal Ratliff M.D. on 03/24/2017 2:49 PM. Narrative CTA Chest Clinical Indication: Chest pain. Technique: Multiple contiguous axial CT images were obtained through the chest with contrast. Isovue-370 was administered. Image postprocessing was obtained according to the PE protocol. Comparison: None Findings: Axilla, Mediastinum and Kely: No lymphadenopathy. Heart and Great Vessels: There are no filling defects in the pulmonary arteries identified to suggest pulmonary embolism. The heart size is Normal.There is no pericardial effusion. There is a 3-lead cardiac pacemaker in place with right atrial, right ventricular and left ventricular leads noted. Lungs and Pleura: There is a tiny nodule in the right middle lobe measuring 0.4 cm on series 5, image 45. No pleural effusions. Chest Wall and Osseous Structures: No destructive osseous lesions. Visualized Upper Abdomen: No significant upper abdominal abnormalities are identified. Procedure Note Interface, Radiant Results - 03/24/2017 2:58 PM CDT CTA Chest Clinical Indication: Chest pain. Technique: Multiple contiguous axial CT images were obtained through the chest with contrast. Isovue-370 was administered. Image postprocessing was obtained according to the PE protocol. Comparison: None Findings: Axilla, Mediastinum and Kely: No lymphadenopathy. Heart and Great Vessels: There are no filling defects in the pulmonary arteries identified to suggest pulmonary embolism. The heart size is Normal.There is no pericardial effusion. There is a 3-lead cardiac pacemaker in place with right atrial, right ventricular and left ventricular leads noted. Lungs and Pleura: There is a tiny nodule in the right middle lobe measuring 0.4 cm on series 5, image 45. No pleural effusions. Chest Wall and Osseous Structures: No destructive osseous lesions. Visualized Upper Abdomen: No significant upper abdominal abnormalities are identified. IMPRESSION 1. No evidence of pulmonary embolus. 2. No consolidating pulmonary infiltrate or pleural effusion. 3. Tiny nodule in the right middle lobe most likely represents a scar or granuloma. If there are no significant risk factors for pulmonary malignancy, no further follow-up of this nodule is required. Finalized by Harshal Ratliff M.D. on 03/24/2017 2:54 PM. Dictated by Harshal Ratliff M.D. on 03/24/2017 2:49 PM. * DEVICE EVALUATION - ICD (03/24/2017 1:13 PM) Component Value Ref Range RV Lead Banking Consultant Other RV Lead Model # DURATA 7122Q-65cm RV Lead Serial # [id number] RV Lead Implant Date 06/11/2014 RV Lead Location Other RV Lead Diaph. 10 Stimulation RV Lead Banking Consultant [employer] RV Lead Investigational No RV Lead Fixation active fixation RV Lead Location RV low septum RV Lead Pin Connector ICD RV Lead Coil Single Generator Banking Consultant Other Generator Model # KEYANAA KIARA [id number] Generator Serial # [id number] Generator Implnat Date 06/11/2014 Advisory Info Advisory Info 2 Permanent Comments Permanent Comments 2 Permanent Comments 3 Permanent Comments 4 Permanent Comments 5 Permanent Comments 6 Permanent Comments 7 Research Comments Research Comments 2 ALMA/EOL Indicator Per Concrete Finisher Apprentice Generator Banking Consultant [employer] [place] Generator Investigational No Wireless Generator Yes Device Type CHEMICAL LABORATORY ASSISTANT-D Atrial Lead Banking Consultant Other Atrial Lead Model # TENDRIL 2088TC-52cm Atrial Lead Serial # [id number] Atrial Lead Implant Date 06/11/2014 Atrial Lead Location Other Atrial Lead Polarity Other Atrial Lead Diaph. NA Stimulation Atrial Lead Banking Consultant [employer] [place] Atrial Lead No Investigational Atrial Lead Fixation active fixation Atrial Lead Location right atrial appendage Atrial Lead Pin Connector IS1 Atrial Lead Polarity Bipolar LV Lead Banking Consultant Other LV Lead Model # QUARTET 1458Q-86cm LV Lead Serial # [id number] LV Lead Implant Date 06/11/2014 (repositioned 07/26/14) LV Lead Location Other marginal young branch LV Lead Polarity Other IS-4 LV Lead Configuration LV1 TO 2 Other LV Lead Banking Consultant [employer] [place] LV Lead Investigational No LV Lead Fixation active fixation LV Lead Location lateral vein LV Lead Pin Connector LV Lead Polarity Mulitpolar LV Lead Configuration Device Mode DDDR Lower Rate Limit 60 Upper Rate Limit 130 Sensor Rate Limit 110 Pace AV Delay 170 Sense AV Delay 120 VT Monitor VT Detect Rate (bpm) 171 bpm for 30 intervals VT Detect Rate Tx ATP&SHOCK ON FVT Detect Rate (bpm) 187 bpm for 20 intervals FVT Detect Rate Tx ATP&SHOCK ON VF Detect Rate (bpm) 250 bpm for 12 intervals VF Detect Rate Tx ATP&SHOCK ON Mode Switch (bpm) 160 pbm to DDIR, base rate 60 High A Rate Detect High V Rate Detect Mode Switch Status On Device Implanted By Poncho Ryan MD Phone Check Next Due Other Implant Info Pacemaker Dependant No Date of Last Programming 03/24/2017 Next Programming Check 08/2017 Due Date of Last Interrogation Date of Last ICM 03/24/17 Evaluation Next ICM Check Due HF Patient Yes Date of Last Remote Check 03/17/17 Next Remote Check Due 06/16/17 Enrollment Date 02/12/2015 Date of baseline remote 02/12/2015 transmission AT/AF Daily Waldo Hours 24 hr episode, 48 hrs a week Average Vent Rate during 100 AT/AF #BPM Average Vent Rate During 6 AT/AF #Hours Remote Monitoring? Yes Daily Waldo Threshld On Alert? Average Venticular Rate On AT/AF On/Off VF Detection/Therapy Off On EP Device Followed by REG Name Device [place] Transmitter Device [place] On Demand Transmitter Compatible EP Device Followed By MAC Device Reprogram Comments Initial Rhythm BiVP Underlying Rhythm NSR -VS% <1 -LIFE GUARD% 93 -VS% 1 AP-LIFE GUARD% 6.0 Initial Rhythm AP-LIFE GUARD Device Function WNL Yes Device Reprogram Yes Programming? Yes Interrogation? Yes Device Check by Rep [place] Transmitter Check Other Reason Not Remote Patient Remote Monitor Serial# Accssory Serial Number Remote Check? Reason Not Being Remote Patient Remote Connectivity Device Remote Manual Downloads # Mode S. Events 0 # High AT/AF Evts # High V Events Time in AT/AF V Rate in AT/AF # of VT Events 0 # of FVT Events 0 # of VF Events 0 # of NSVT Events 0 Single PVSc <1% PVC runs BiVP% 99% VSR Pace% VS% #VS Events Time in VS Battery Voltage 60% Estimated Longevity 4.1y Charge Time 9.4s Defib Lead Imped 69 SVC LEAD IMPED A Sense mv 4.2 A Lead ohms 450 A Capture V 0.5 A Capture ms 0.5 Ao Voltage 1.625A AO Pulse Width 0.5 RV Sense mv 8.9 RV Lead ohms 450 RV Capture V 0.75 RV Capture ms 0.5 RV Voltage 2.0 RV Pulse Width 0.5 LV Sense mv LV Lead ohms 740 EP LV Capture V 1.75 LV Capture ms 0.8 LV Voltage 2.5 LV Pulse Width 0.8 V-V Timing LV-RV, 15ms Counters Clrd Yes Saved to Disc No Activity HRV (range ms) FL IND RANGE (Last Fluid Index Range) FL IND TODAY(Today Fluid Index Value) THOR IMP RANGE(Last Optivol Thoracic Impedence Range) THOR IMP TODAY(Today's Optivol Thoracic Impedence Value) ICM Evaluation Yes Thoracic Impedance Evaluated? Specimen Performing Laboratory OTHER OUTSIDE LAB Narrative [facility] CRTD programming + ICM.Device function appears normal. Events noted since remote 03/07/17 : Atrial:none. Last AF events was 03/05/17. Ventricular:none V-sensed:99 % BiVP Thoracic Impedance trend is stable for this patient. Changes made to programming:Changed A sensitivity from auto to 0.3mV. LV amplitude form 2.25 to 2.5V. [place] remote monitoring is in place.Will continue to monitor.NEED to change AF episode to 3 hours and burden to 6 weekly next check. Report to Dr Mistry in clinic. [03/24/2017 4:12:19 PM - JUAN LUIS LIGHT] from Last 3 Months
--- OUTSIDE RECORDS SUMMARY | 2017-06-23 01:59 | XMS REPORT | Continuity of Care Document ---
Author Author [facility] Organization [facility] Address Unknown Phone Unavailable Allergies Active Description [...] 11/19/2016 KERWIN MARTINEZ MD Ot Z79.899 OTHER HALF-WAY (CURRENT) DRUG THERAPY 11/19/2016 KERWIN MARTINEZ MD Ot Z95.0 PRESENCE OF CARDIAC PACEMAKER 11/21/2016 MERLIN BENITEZ DO Ot 783.21 LOSS OF WEIGHT 11/21/2016 MERLIN BENITEZ DO Ot 593.9 RENAL URETERAL DIS NOS 11/23/2016 KERWIN MARTINEZ MD Ot R19.7 DIARRHEA, UNSPECIFIED 11/23/2016 KERWIN MARTINEZ MD Ot Z79.899 OTHER HALF-WAY (CURRENT) DRUG THERAPY 11/23/2016 KERWIN MARTINEZ MD Ot Z95.0 PRESENCE OF CARDIAC PACEMAKER 06/15/2017 MERLIN BENITEZ DO Ot 783.21 LOSS OF WEIGHT 06/15/2017 MERLIN BENITEZ DO Ot 593.9 RENAL URETERAL DIS NOS 06/16/2017 MERLIN BENITEZ DO Ot K57.32 DVTRCLI OF LG INT W/O PERFORATION OR ABS 06/16/2017 MERLIN BENITEZ DO Ot Z79.899 OTHER HALF-WAY (CURRENT) DRUG THERAPY 06/16/2017 MERLIN BENITEZ DO [...] Status Pt. Type Provider Facility Loc./Unit Complaint [id number] 06/15/2017 18:13:00 2016 10:15:00 DIS Outpatient MERLIN BENITEZ DO [facility] 4TH ABD PAIN, DIVERTICULOSIS W/ ACUTE DIVERTICULITIS [id number] 11/19/2016 11:37:00 2015 14:35:00 DIS Emergency JUAN WHITTINGTON, KERWIN Ochoa [facility] ER DIARRHEA [id number] 06/21/2016 23:26:00 2015 06:45:00 DIS Outpatient VY WHITTINGTON, RADHA Junior [facility] SLEEP KENDRICK,SNORING,ARRHYTHMIAS,ISCHEMIC HEART DISEASE [id number] 06/06/2015 09:14:00 2014 23:59:59 CLS Outpatient MERLIN BENITEZ DO [facility] RAD WT LOSS, PROBLEM EATING [id number] 06/03/2015 13:32:00 2014 23:59:59 CLS Outpatient MERLIN BENITEZ DO [facility] LAB LA NENA INSUF [id number] 06/27/2014 13:15:00 2013 14:55:00 DIS Troy RENO MD, OWEN Doll [facility] ER LEFT ARM VEIN SWELLING
--- OUTSIDE RECORDS SUMMARY | 2017-06-23 01:59 | XMS REPORT | Clinical Summary ---
Author Author [facility] Organization [facility] Address Unknown Phone Unavailable Care Team Providers Care Purchasing Manager/Sales Name Role Phone PCP Unavailable Source Comments Some departments are not documenting in the electronic medical record. If you do not see the information that you expected, contact Release of Information in the Health Information Management department at [phone] for further assistance in locating additional records.[facility] Allergies Active Allergy Reactions Severity Noted [...] and interaction with theophyline. NICM (nonischemic cardiomyopathy) ([facility]) 07/26/2014 Biventricular AICD malfunction 07/25/2014 Overview: LV Lead Dislodgement Biventricular implantable cardioverter-defibrillator in situ 07/22/2014 LBBB (left bundle branch block) 05/10/2014 CHF (congestive heart failure), NYHA class II ([facility]) 05/10/2014 Cardiomyopathy ([facility]) 05/09/2014 Hypertension 01/23/2014 Mitral valve regurgitation 01/23/2014 Left ventricular dysfunction 01/23/2014 Encounters Date Type Specialty Care Team Description 06/21/2017 [facility] Cardiology Quang Mistry MD Arrived [...] 36.2 C (97.2 F) 12/20/2014 12:18 PM BANQUET STEWARDESS Respiratory Rate 16 12/20/2014 12:18 PM BANQUET STEWARDESS Oxygen Saturation 96% 07/02/2016 12:37 PM CDT [...] 25 % Referring Provider CV ECHO PV SERVICENOW ADMINISTRATOR DEVELOPER Interp Only Hospital Manager Height (in) in Weight Lbs lbs Rt [...] a peak gradient of mmHg AV index (samish) 0.45 AV mean gradient post mmHg stress [...] PM) Component Value Ref Range RV Lead Flight Communications Officer Other RV Lead Model # DURATA 7122Q-65cm RV Lead Serial # [id number] RV Lead Implant Date 06/11/2014 RV Lead Location Other RV Lead Diaph. 10 Stimulation RV Lead Flight Communications Officer [employer] [place] RV Lead Investigational No RV Lead Fixation active fixation RV Lead Location RV low septum RV Lead Pin Connector ICD RV Lead Coil Single Generator Flight Communications Officer Other Generator Model # KEYANAA KIARA [id number] Generator Serial # [id number] Generator Implnat Date 06/11/2014 Advisory Info Advisory Info 2 Permanent Comments Permanent Comments 2 Permanent Comments 3 Permanent Comments 4 Permanent Comments 5 Permanent Comments 6 Permanent Comments 7 Research Comments Research Comments 2 ALMA/EOL Indicator Per Principal Gifts Officer Generator Flight Communications Officer [employer] [place] Generator Investigational No Wireless Generator Yes Device Type KILN TESTER-D Atrial Lead Flight Communications Officer Other Atrial Lead Model # TENDRIL 2088TC-52cm Atrial Lead Serial # [id number] Atrial Lead Implant Date 06/11/2014 Atrial Lead Location Other Atrial Lead Polarity Other Atrial Lead Diaph. NA Stimulation Atrial Lead Flight Communications Officer [facility] [place] Atrial Lead No Investigational Atrial Lead Fixation active fixation Atrial Lead Location right atrial appendage Atrial Lead Pin Connector IS1 Atrial Lead Polarity Bipolar LV Lead Flight Communications Officer Other LV Lead Model # QUARTET 1458Q-86cm LV Lead Serial # [id number] LV Lead Implant Date 06/11/2014 (repositioned 07/26/14) LV Lead Location Other marginal young branch LV Lead Polarity Other IS-4 LV Lead Configuration LV1 TO 2 Other LV Lead Flight Communications Officer [employer] [place] LV Lead Investigational No [...] of baseline remote 02/12/2015 transmission AT/AF Daily [place] Hours 24 hr episode, 48 hrs a week Average Vent Rate during 100 AT/AF #BPM Average Vent Rate During 6 AT/AF #Hours Remote Monitoring? Yes Daily [place] Threshld On Alert? Average Venticular Rate On AT/AF On/Off VF Detection/Therapy Off On EP Device Followed by REG Name Device [place] Transmitter Device [place] On Demand Transmitter Compatible EP Device Followed By MAC Device Reprogram Comments Initial Rhythm BiVP Underlying Rhythm NSR -VS% <1 -RESEARCH BIOLOGIST% 93 -VS% 1 AP-RESEARCH BIOLOGIST% 6.0 Initial Rhythm AP-RESEARCH BIOLOGIST Device Function WNL Yes Device Reprogram Yes Programming? Yes Interrogation? Yes Device Check by Rep [place] Transmitter Check Other Reason Not Remote Patient [...] Specimen Performing Laboratory OTHER OUTSIDE LAB Narrative [facility] CRTD programming + ICM.Device function appears normal. Events noted since remote 03/07/17 : Atrial:none. Last AF events was 03/05/17. Ventricular:none V-sensed:99 % BiVP Thoracic Impedance trend is stable for this patient. Changes made to programming:Changed A sensitivity from auto to 0.3mV. LV amplitude form 2.25 to 2.5V. [place] remote monitoring is in place.Will continue to monitor.NEED to change AF episode to 3 hours and burden to 6 weekly next check. Report to Dr Mistry in clinic. [03/24/2017 4:12:19 PM - JUAN LUIS LIGHT] from Last 3 Months
== END 2017-06-16 09:16 | disposition home or self-care (01) ==
LOC: EDUNIT# 15:19 → ER 15:21 → 4TH 18:13 → UNDOADMOB 18:13 → 4TH 18:47 → UNDODISOB 06-16 10:15
PROVIDERS: ADMIT Family Medicine; ATTEND Family Medicine
DX: K57.32 Diverticulitis of large intestine without perforation or abscess without bleeding (principal); Z79.899 Other long term (current) drug therapy; Z95.0 Presence of cardiac pacemaker
CPT/HCPCS: 36415; 74177; 80053; 81000; 85025; 94760; 96361; 96374; 99284; G0378

== ENCOUNTER 2017-07-07 05:41 | Outpatient (CLI) | payer MEDICARE ==
[~2017-07-07] VITALS: Ht 170.2 cm; Wt 63.5 kg
[~2017-07-07 05:41] MED LIST changes: +ALPR0.5T7 PO; +CIPR-225 PO; +MAGN250T2 PO; +MELA1TAB15 PO; +METR500T PO; +MULT1TAB69 PO; +TRAZ100T92 PO; +UBID100C44 PO
[2017-07-07] MEDS ORDERED: TRAZ100T92 PO (12:40)
== END 2017-07-07 12:47 ==
LOC: PREOP 05:41
PROVIDERS: ATTEND Surgery
DX: Z01.818 Encounter for other preprocedural examination (principal); Z12.11 Encounter for screening for malignant neoplasm of colon

== ENCOUNTER 2017-07-11 09:20 | Day surgery (SDC) | payer MEDICARE ==
[~2017-07-11] VITALS: Ht 170.2 cm; Wt 63.5 kg
--- OUTSIDE RECORDS SUMMARY | 2017-07-11 09:24 | XMS REPORT | Encounter Summary ---
Author Author [facility] Organization [facility] Address Unknown Phone Unavailable Care Team Providers Care Airdox Fitter Name Role Phone PCP Unavailable Reason for Visit * Reason Comments Medication Refill Encounter Details Date Type Department Care Team Description 05/30/2017 [facility] Quang Mistry MD Medication Refill [address] [place] [address] [place] [address] [place] [address] [phone] Social History Tobacco Use Types Packs/Day Years Used Date Former Smoker Cigarettes 1 10 Quit: 11/28/1993 Smokeless Tobacco: Never Used Alcohol Use Drinks/Week oz/Week Comments Yes 1 Cans of 0.6 2-6 beers nightly beer Sex Assigned at Date Recorded Not on file as of this encounter Functional Status Functional Status Response Date of Assessment Does the patient have a hearing impairment: No 06/12/2014 Does the patient have a visual impairment: No 06/12/2014 Does the patient have impaired ambulation: No 06/12/2014 Does the patient have an activity of daily living No 06/12/2014 (ADL) impairment: Does the patient have an instrumental activity of No 06/12/2014 daily living (IADL) impairment: Cognitive Status Response Date of Assessment Does the patient have a cognitive impairment: No 06/12/2014 as of this encounter Plan of Treatment Not on fileas of this encounter Visit Diagnoses Not on filein this encounter
--- OUTSIDE RECORDS SUMMARY | 2017-07-11 09:24 | XMS REPORT | Encounter Summary ---
Author Author [facility] Organization [facility] Address Unknown Phone Unavailable Care Team Providers Care Health Information Technologist Name Role Phone PCP Unavailable Encounter Details Date Type Department Care Team Description 06/21/2017 [facility] Cardiology Quang Mistry MD Encounter Remote Device Check [address] [place] [phone] [address] [place] [address] [phone] Social History Tobacco Use Types Packs/Day Years [...] impairment: No 06/12/2014 as of this encounter Medications at Time of Discharge Medication Sig. Disp. Refills Start Date End Date ALPRAZolam (XANAX) 0.5 mg Take 0.5 mg by mouth at tablet bedtime as needed. carvedilol (COREG) 25 mg Take 1/2 tablet (12.5mg) 135 Tab 3 2016 tablet by month every morning and 1 tablet (25mg) by mouth every evening. traZODone (DESYREL) 50 mg Take 50 mg by mouth as tablet directed. 50mg or 100mg as needed for sleep as of this encounter Plan of Treatment Not on fileas of this encounter Results * DEVICE EVALUATION - REMOTE ICD (07/05/2017 2:51 PM) Component Value Ref Range RV Lead Manager Inventory Control Other RV Lead Model # DURATA 7122Q-65cm RV Lead Serial # [id number] RV Lead Implant Date 06/11/2014 RV Lead Location Other RV Lead Diaph. 10 Stimulation RV Lead Manager Inventory Control [employer] [place] RV Lead Investigational No RV Lead Fixation active fixation RV Lead Location RV low septum RV Lead Pin Connector ICD RV Lead Coil Single Generator Manager Inventory Control Other Generator Model # KEYANAA KIARA [id number] Generator Serial # [id number] Generator Implnat Date 06/11/2014 Advisory Info Advisory Info 2 Permanent Comments Permanent Comments 2 Permanent Comments 3 Permanent Comments 4 Permanent Comments 5 Permanent Comments 6 Permanent Comments 7 Research Comments Research Comments 2 ALMA/EOL Indicator Per Solder Sprayer Generator Manager Inventory Control [employer] Generator Investigational No Wireless Generator Yes Device Type AIR CREW MEMBER-D Atrial Lead Manager Inventory Control Other Atrial Lead Model # TENDRIL 2088TC-52cm Atrial Lead Serial # [id number] Atrial Lead Implant Date 06/11/2014 Atrial Lead Location Other Atrial Lead Polarity Other Atrial Lead Diaph. NA Stimulation Atrial Lead Manager Inventory Control [facility] [place] Atrial Lead No Investigational Atrial Lead Fixation active fixation Atrial Lead Location right atrial appendage Atrial Lead Pin Connector IS1 Atrial Lead Polarity Bipolar LV Lead Manager Inventory Control Other LV Lead Model # QUARTET 1458Q-86cm LV Lead Serial # [id number] LV Lead Implant Date 06/11/2014 (repositioned 07/26/14) LV Lead Location Other marginal young branch LV Lead Polarity Other IS-4 LV Lead Configuration LV1 TO 2 Other LV Lead Manager Inventory Control [employer] [place] LV Lead Investigational No [...] of baseline remote 02/12/2015 transmission AT/AF Daily [place] Hours 24 hr episode, 48 hrs a week Average Vent Rate during 100 AT/AF #BPM Average Vent Rate During 6 AT/AF #Hours Remote Monitoring? Yes Daily [place] Threshld On Alert? Average Venticular Rate On AT/AF On/Off VF Detection/Therapy Off On EP Device Followed by REG Name Device [place] Transmitter Device [place] [employer]hames On Demand Transmitter Compatible EP Device Followed By MAC Other Reason Not Remote Patient Remote Monitor Serial# Accssory Serial Number Reason Not Being Remote Patient Remote Connectivity Device Remote Manual Downloads Specimen Performing Laboratory OTHER OUTSIDE LAB Narrative Current Monitoring Period: 06/21/17 through 09/20/17 [07/05/2017 2:51:32 PM - INÉS CEJA] Scheduled [place] transmission received.Device function appears normal. Events noted since 03/24/17: Atrial:1 AMS event on 04/09/17 lasting 28 seconds, EGM shows 1:1 conduction, atrial driven, rates: 173 bpm. Ventricular:2 NSVT event lasting 8-14 beats, EGm shows true VT, V-rates: 185-200 bpm. Pt is BiVP >99% of the time. CorVue recently well below the reference line, currently trending upward and right below the reference line. Please see scanned data sheets for further review as needed.Pt is scheduled to follow up on 08/05/17 with REG at the office. in this encounter Visit Diagnoses Diagnosis Cardiomyopathy (HCC) Other primary cardiomyopathies in this encounter
--- OUTSIDE RECORDS SUMMARY | 2017-07-11 09:24 | XMS REPORT | Encounter Summary ---
Author Author [facility] Organization [facility] Address Unknown Phone Unavailable Care Team Providers Care Care Provider Name Role Phone PCP Unavailable Reason for Visit * Reason Comments Pain pain in belly x2 days. Encounter Details Date Type Department Care Team Description 06/15/2017 Telephone [facility] Cardiology Karlie Schultz RN Pain ( pain in belly x2 [address] [place] [address]. ) [address] [place] [address] Social History Tobacco Use Types Packs/Day Years [...]
--- OUTSIDE RECORDS SUMMARY | 2017-07-11 09:24 | XMS REPORT | Clinical Summary ---
Author Author [facility] Organization [facility] Address Unknown Phone Unavailable Care Team Providers Care Log Loader Name Role Phone PCP Unavailable Source Comments Some departments are not documenting in the electronic medical record. If you do not see the information that you expected, contact Release of Information in the Health Information Management department at [phone] for further assistance in locating additional records.[facility] Allergies Active Allergy Reactions Severity Noted [...] 1 tablet (25mg) by mouth every evening. Active Problems Problem Noted Date Paroxysmal a-fib [...] and interaction with theophyline. NICM (nonischemic cardiomyopathy) ([facility]) 07/26/2014 Biventricular AICD malfunction 07/25/2014 Overview: LV Lead Dislodgement Biventricular implantable cardioverter-defibrillator in situ 07/22/2014 LBBB (left bundle branch block) 05/10/2014 CHF (congestive heart failure), NYHA class II ([facility]) 05/10/2014 Cardiomyopathy ([facility]) 05/09/2014 Hypertension 01/23/2014 Mitral valve regurgitation 01/23/2014 Left ventricular dysfunction 01/23/2014 Encounters Date Type Specialty Care Team Description 06/21/2017 Hospital Cardiology Quang Mistry MD Encounter 06/15/2017 Telephone Cardiology Karlie Schultz RN Pain (pain in belly x2 days. 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 10 Stimulation RV Lead Revenue Audit Clerk [employer] [place] RV Lead Investigational No RV Lead Fixation active fixation RV Lead Location RV low septum RV Lead Pin Connector ICD RV Lead Coil Single Generator Revenue Audit Clerk Other Generator Model # KEYANAA KIARA [id number] Generator Serial # [id number] Generator Implnat Date 06/11/2014 Advisory Info Advisory Info 2 Permanent Comments Permanent Comments 2 Permanent Comments 3 Permanent Comments 4 Permanent Comments 5 Permanent Comments 6 Permanent Comments 7 Research Comments Research Comments 2 ALMA/EOL Indicator Per Roastmaster Generator Revenue Audit Clerk [employer] [place] Generator Investigational No Wireless Generator Yes Device Type VESSEL SLAGMAN-D Atrial Lead Revenue Audit Clerk Other Atrial Lead Model # TENDRIL 2088TC-52cm Atrial Lead Serial # [id number] Atrial Lead Implant Date 06/11/2014 Atrial Lead Location Other Atrial Lead Polarity Other Atrial Lead Diaph. NA Stimulation Atrial Lead Revenue Audit Clerk [facility] [place] Atrial Lead No Investigational Atrial Lead Fixation active fixation Atrial Lead Location right atrial appendage Atrial Lead Pin Connector IS1 Atrial Lead Polarity Bipolar LV Lead Revenue Audit Clerk Other LV Lead Model # QUARTET 1458Q-86cm LV Lead Serial # [id number] LV Lead Implant Date 06/11/2014 (repositioned 07/26/14) LV Lead Location Other marginal young branch LV Lead Polarity Other IS-4 LV Lead Configuration LV1 TO 2 Other LV Lead Revenue Audit Clerk [employer] [place] LV Lead Investigational No [...] of baseline remote 02/12/2015 transmission AT/AF Daily [place] Hours 24 hr episode, 48 hrs a week Average Vent Rate during 100 AT/AF #BPM Average Vent Rate During 6 AT/AF #Hours Remote Monitoring? Yes Daily [place] Threshld On Alert? Average Venticular Rate On AT/AF On/Off VF Detection/Therapy Off On EP Device Followed by REG Name Device [place] Transmitter Device [place] On Demand Transmitter Compatible EP Device Followed By MAC Other Reason Not Remote Patient Remote Monitor Serial# Accssory Serial Number Reason Not Being Remote Patient Remote Connectivity Device Remote Manual Downloads Specimen Performing Laboratory OTHER OUTSIDE LAB Narrative Current Monitoring Period: 06/21/17 through 09/20/17 [07/05/2017 2:51:32 PM - INÉS CEJA] Scheduled [place] transmission received.Device function appears normal. Events noted [...] on 08/05/17 with REG at the office. from Last 3 Months
[2017-07-11 09:25] VITALS: BP 122/79
--- OUTSIDE RECORDS SUMMARY | 2017-07-11 09:25 | XMS REPORT | Encounter Summary ---
Author Author [facility] Organization [facility] Address Unknown Phone Unavailable Care Team Providers Care Log Inspector Name Role Phone PCP Unavailable Reason for Visit * Reason Comments Echo Results Stable Encounter Details Date Type Department Care Team Description 04/14/2017 Telephone [facility] Cardiology Rosetta Yoder, REMY Echo Results (Stable) [address] [place] [place] [address] Social History Tobacco Use Types Packs/Day Years [...]
[2017-07-11] MEDS ORDERED: NS IV 500 ML 500 ML IV PRN (09:30)
--- NOTE | 2017-07-11 09:37 | Conscious Sedation/ASA ---
Conscious Sedation Pre-Proced Time Reviewed: 09:36 ASA Class: 2 Airway Mallampati Classification: ([place] appropriate class) I. II. III, IV Lungs Heart ASA score ASA 1: a normal healthy patient ASA 2: a patient with a mild systemic disease (mid diabetes, controlled hypertension, obesity ASA 3: a patient with a severe systemic disease that limits activity (angina , COPD, prior Myocardial infarction) ASA 4: a patient with an incapacitating disease that is a constant threat to life (CHF, renal failure) ASA 5: a moribund patient not expected to survive 24 hrs. (ruptured aneurysm) ASA 6: a declared brain patient whose organs are being harvested. For emergent operations, add the letter E after the classification Grade 1 Sedation Plan: Discussed options with patient/fam Note The patient is an appropriate candidate to undergo the planned procedure, sedation, and anesthesia. The patient immediately re-assessed prior to indication. MARTINEZ PEDERSEN MD Jul 11, 2017 9:36 am
[2017-07-11] MEDS ORDERED: MIDAZOLAM 2 MG/2 ML (VERSED) VIAL ONE ×2 (10:33)
[2017-07-11] MEDS ORDERED: fentaNYL INJECTION 100 MCG/2 ML AMP ONE (10:33)
[2017-07-11] MEDS: fentaNYL INJECTION 100 MCG/2 ML AMP IVP PRN ×2 (10:40→10:43)
[2017-07-11] MEDS: MIDAZOLAM 2 MG/2 ML (VERSED) VIAL IVP PRN ×2 (10:41→10:44)
--- NOTE | 2017-07-11 10:56 | Endo Procedure Record ---
Endo Procedure Report Date of Procedure Jul 11, 2017 Surgeon (s) MARTINEZ PEDERSEN MD Post Procedure/Op Diagnosis sigmoid diverticulosis Procedure Performed colonoscopy to cecum Description of Procedure Anesthesia Type: Conscious Sedation Specimen(s) collected/removed none Description of the Procedure Indication for procedure: This gentleman suffered sigmoid diverticulitis requiring intravenous antibiotics. Once his acute symptoms resolved, he return for colonoscopy for screening purposes and to assess the extent of diverticular disease. Informed consent was obtained after reviewing the procedure in detail. Description of procedure: He was placed in left lateral decubitus position and his vital signs were monitored. Conscious sedation was achieved using Versed and fentanyl. Digital rectal examination was unremarkable. Vital the colonoscope was then introduced in the rectum and advanced to the cecum. Scope was then withdrawn slowly and the mucosa examined in a systematic fashion. Findings: Very few, small mouthed sigmoid diverticulae. No polyps were seen. He tolerated the procedure well and was taken back to the nursing area in a stable condition. Impression: Resolving sigmoid diverticulitis. No polyps. Recommend screening examination in 10 years. Copies To: MERLIN BENITEZ XAVIER M MD Jul 11, 2017 10:56 am
--- NOTE | 2017-07-11 10:57 | Discharge Inst-Simple/Standard ---
Discharge Inst-Standard Discharge Medications New, Converted or Re-Newed RX: Other Patient Instructions/Follow Up Plan of Care/Instructions/FU: screening colonoscopy in 10 years.please provide information on diverticulosis and high fiber diet Activity as Tolerated: Yes Discharge Diet: No Restrictions MARTINEZ PEDERSEN MD Jul 11, 2017 10:57 am
[2017-07-11 11:10] VITALS: BP 106/70
[2017-07-11 11:40] VITALS: BP 108/73
[2017-07-11 12:00] VITALS: BP 108/73
== END 2017-07-11 12:00 | disposition home or self-care (01) ==
LOC: ENDO 09:20
PROVIDERS: ATTEND Surgery
DX: Z12.11 Encounter for screening for malignant neoplasm of colon (principal); K57.30 Diverticulosis of large intestine without perforation or abscess without bleeding; F32.9 Major depressive disorder, single episode, unspecified; F41.9 Anxiety disorder, unspecified; Z79.899 Other long term (current) drug therapy

== ENCOUNTER 2018-02-18 19:47 | Emergency (ER) | payer MEDICARE ==
[~2018-02-18] VITALS: Ht 170.2 cm; Wt 63.5 kg
--- OUTSIDE RECORDS SUMMARY | 2018-02-18 19:52 | XMS REPORT | Encounter Summary ---
Author Author [facility] Organization [facility] Address Unknown Phone Unavailable Care Team Providers Care Purchasing Specialist Name Role Phone Sandi Hastings Unavailable Rodriguez Martino DO PCP Aisha Gabriel RN Unavailable Unavailable Sarah Ramires RN Unavailable Unavailable Alec Gallagher MD Unavailable Jaden Phillips MD Unavailable Alec Vega MD Unavailable Unavailable Quang Mistry MD Unavailable Encounter Details Date Type Department Care Team Description 01/10/2018 Pharmacy Visit [facility] [address] [place] [address] Social History Tobacco Use Types Packs/Day Years [...]
--- OUTSIDE RECORDS SUMMARY | 2018-02-18 19:52 | XMS REPORT | Encounter Summary ---
Author Author [facility] Organization [facility] Address Unknown Phone Unavailable Care Team Providers Care Biology Specimen Technician Name Role Phone Sandi Hastings Unavailable Gunner Rodriguez GARRETT PCP Aisha Gabriel RN Unavailable Unavailable Sarah Ramires RN Unavailable Unavailable Alec Gallagher MD Unavailable Jaden Phillips MD Unavailable Alec Vega MD Unavailable Unavailable Quang Mistry MD Unavailable Reason for Visit * Reason Comments Other Entresto Encounter Details Date Type Department Care Team Description 01/18/2018 Telephone [facility] Cardiology Mervin Schultz RN Other ( Entresto) [address] [facility] [address] [place] [address] Social History Tobacco Use Types Packs/Day Years [...] impairment: No 06/12/2014 as of this encounter Miscellaneous Notes * Addendum Note - Mervin Schultz, RN - 01/18/2018 3:12 PM GRAIN ORIGINATION SPECIALIST Addended by: MERVIN SCHULTZ on: 01/18/2018 03:12 PM Modules accepted: Orders * Telephone Encounter - Mervin Schultz, RN - 01/18/2018 3:07 PM GRAIN ORIGINATION SPECIALIST Mervin- please start him on losartan 25 mg/day and have him see Nicolasa 3-4 weeks later. Thanks RG Called and spoke with pt. Let him know to continue his entresto until gone. He will start losartan when that is done. He will call us when he starts losartan so we can set up an OV 3-4 weeks after. Pt verb understanding. * Telephone Encounter - Mervin Schultz, RN - 01/18/2018 12:35 PM GRAIN ORIGINATION SPECIALIST Pt called and his Entresto is now $470 instead of 330. He cannot afford to stay on, as his prescription coverage will run out by june at this rate. Will ask REG for alternatives. in this encounter Plan of Treatment Not on fileas of this encounter Visit Diagnoses Not on filein this encounter
--- OUTSIDE RECORDS SUMMARY | 2018-02-18 19:52 | XMS REPORT | Encounter Summary ---
Author Author [facility] Organization [facility] Address Unknown Phone Unavailable Care Team Providers Care Biologics Specialist Name Role Phone Sandi Hastings Unavailable GunnerRodriguez PCP Aisha Gabriel RN Unavailable Unavailable Sarah Ramires RN Unavailable Unavailable Alec Gallagher MD Unavailable Jaden Phillips MD Unavailable Alec Vega MD Unavailable Unavailable Quang Mistry MD Unavailable Reason for Visit * Reason Comments Lab Results Encounter Details Date Type Department Care Team Description 01/11/2018 Telephone [facility] Cardiology Karlie Schultz RN Lab Results [address] [place] [address] Social History Tobacco Use Types [...] as of this encounter Miscellaneous Notes * Telephone Encounter - Karlie Schultz RN - 01/11/2018 5:15 PM CERTIFIED MEDICAL ASST LMOM for pt that labs looked good. Gave call back for questions. * Telephone Encounter - Karlie Schultz RN - 01/11/2018 5:14 PM CERTIFIED MEDICAL ASST ----- Message from Karlie Schultz RN sent at 01/06/2018 8:49 AM CERTIFIED MEDICAL ASST ----- ----- Message ----- From: Quang Mistry MD Sent: 01/02/2018 7:35 PM To: REMY Aguila-please let him know that the labs look stable/normal. Please continue with the current treatment plan. Thanks RG ----- Message ----- From: Karlie Schultz RN Sent: 01/02/2018 4:03 PM To: Quang Mistry MD Labs for your review. OV today. Labs look great. Please advise. Thanks. CG Please advise. Thanks. CG in this encounter Plan of Treatment Not on fileas of this encounter Visit Diagnoses Not on filein this encounter
--- OUTSIDE RECORDS SUMMARY | 2018-02-18 19:52 | XMS REPORT | Continuity of Care Document ---
Author Author [facility] Organization [facility] Address Unknown Phone Unavailable Care Team Providers Care Level Vial Inspector And Tester Name Role Phone [employer] Unavailable Unavailable Problems Medications Allergies, Adverse Reactions, Alerts Immunizations Results Vital Signs Encounters Location Location Details Encounter Type Encounter Number Reason For Visit Attending Provider ADM Date DC Date Status Source OUTPATIENT [id number] FAIZA CLIFTON 10/15/2016 10/15/2016 Active [facility] OUTPATIENT [id number] FAIZADAHIANA CHANDRAVALERIA 06/21/2017 06/21/2017 Active [facility] OUTPATIENT [id number] FAIZADAHIANA CLIFTON 08/05/2017 08/05/2017 Active [facility] OUTPATIENT [id number] FAIZADAHIANA CLIFTON 08/11/2017 08/11/2017 Active [facility] OUTPATIENT [id number] FAIZADAHIANA CLIFTON 09/02/2017 09/02/2017 Active [facility] OUTPATIENT [id number] FAIZADAHIANA CLIFTON 09/16/2017 09/16/2017 Active [facility] OUTPATIENT [id number] FAIZADAHIANA CLIFTON 09/20/2017 09/20/2017 Active [facility] OUTPATIENT [id number] KATHERINE BEVERLY 09/22/2017 Active [facility] OUTPATIENT [id number] FAIZADAHIANA CLIFTON 09/30/2017 09/30/2017 Active [facility] OUTPATIENT [id number] FAIZADAHIANA CLIFTON 12/20/2017 12/20/2017 Active [facility] OUTPATIENT [id number] FAIZADAHIANA CLIFTON 01/02/2018 01/02/2018 Active [facility] O Active [facility] Procedures Plan of Care Social History Assessment and Plan Family History Advance Directives Functional Status
--- OUTSIDE RECORDS SUMMARY | 2018-02-18 19:52 | XMS REPORT | Clinical Summary ---
Author Author [facility] Organization [facility] Address Unknown Phone Unavailable Care Team Providers Care Manager Utilization Name Role Phone Sandi Hastings Unavailable Gunner Rodriguez GARRETT PCP Aisha Gabriel RN Unavailable Unavailable Sarah Ramires RN Unavailable Unavailable Alec Gallagher MD Unavailable Jaden Phillips MD Unavailable Alec Vega MD Unavailable Unavailable Quang Mistry MD Unavailable Source Comments Some departments are not documenting in the electronic medical record. If you do not see the information that you expected, contact Release of Information in the Health Information Management department at [phone] for further assistance in locating additional records.[facility] Allergies Active Allergy Reactions Severity Noted [...] 50mg or 100mg as needed for sleep melatonin 3 mg tab Take 5 mg by mouth at Active bedtime daily. Sometimes taking 10mg coQ10 (ubiquinol) 100 mg Take by mouth. Active cap MAGNESIUM HYDROXIDE Take by mouth. Active (MAGNESIA PO) carvedilol (COREG) 6.25 Take 6.25mg in the am and 270 tablet 3 Active mg tablet 12.5mg in the pm. 18 losartan (COZAAR) 25 mg Take 1 tablet by mouth 90 tablet 3 01/18/20 Active tablet daily. 18 Active Problems Problem Noted Date Vision changes 09/22/2017 Paroxysmal A-fib ([facility]) 03/09/2017 Mechanical breakdown of cardiac pulse generator 11/11/2016 Overview: 2015 [facility] Advisory for Premature Battery Depletion - addressed [...] and interaction with theophyline. NICM (nonischemic cardiomyopathy) ([facility]) 07/26/2014 Biventricular AICD malfunction 07/25/2014 Overview: LV Lead Dislodgement Biventricular implantable cardioverter-defibrillator in situ 07/22/2014 LBBB (left bundle branch block) 05/10/2014 CHF (congestive heart failure), NYHA class II ([facility]) 05/10/2014 Cardiomyopathy ([facility]) 05/09/2014 Hypertension 01/23/2014 Mitral valve regurgitation 01/23/2014 Left ventricular dysfunction 01/23/2014 Encounters Date Type Specialty Care Team Description 02/04/2018 Pharmacy Visit 01/18/2018 Telephone Cardiology Karlie Schultz, RN Other (Entresto) 01/11/2018 Telephone Cardiology Karlie Schultz RN Lab Results 01/10/2018 Pharmacy Visit 01/10/2018 Pharmacy Visit 01/02/2018 [facility] Cardiology Quang Mistry MD Encounter 01/02/2018 Office Visit Cardiology Quang Mistry MD Cardiac Eval (3 mo f/u- NICM) 12/20/2017 [facility] Cardiology Quang Mistry MD Encounter 12/14/2017 Pharmacy Visit 12/13/2017 Refill Cardiology Quang Mistry MD Medication Refill 12/13/2017 Pharmacy Visit from Last 3 Months Family History Medical [...] Vital Sign Reading Time Taken Blood Pressure 96/62 01/02/2018 12:52 PM MEDICAL TRANSCRIPTIONIST Pulse 77 01/02/2018 12:52 PM MEDICAL TRANSCRIPTIONIST Temperature 36.2 C (97.2 F) 12/20/2014 12:18 PM MEDICAL TRANSCRIPTIONIST Respiratory Rate 16 12/20/2014 12:18 PM MEDICAL TRANSCRIPTIONIST Oxygen Saturation 98% 09/02/2017 2:22 PM CDT Inhaled Oxygen - - Concentration Weight 65.3 kg (144 lb) 01/02/2018 12:52 PM MEDICAL TRANSCRIPTIONIST Height 170.2 cm (5' 7") 01/02/2018 12:52 PM MEDICAL TRANSCRIPTIONIST Body Mass Index 22.55 01/02/2018 12:52 PM MEDICAL TRANSCRIPTIONIST Plan of Treatment Health Maintenance Due Date Last Done Comments HEPATITIS C SCREENING 1949 PHYSICAL (COMPREHENSIVE) 1956 EXAM PERTUSSIS VACCINE 1960 TETANUS VACCINE 1966 COLORECTAL CANCER 1999 SCREENING SHINGLES VACCINE 2009 ABDOMINAL AORTIC ANEURYSM 2014 SCREENING PREVNAR/PNEUMOVAX (#1) 2014 INFLUENZA VACCINE 08/28/2018 Results * TOTAL THYROXINE T4 (01/02/2018 1:30 PM) Component Value Ref Range T4 (Total) 8.6 6.1 - 12.3 MCG/DL Specimen Performing Laboratory [facility] [address] [place] [address] * CBC AND DIFF (01/02/2018 1:30 PM) Component Value Ref Range White Blood Cells 7.5 4.5 - 11.0 K/UL RBC 4.75 4.4 - 5.5 M/UL Hemoglobin 14.1 13.5 - 16.5 GM/DL Hematocrit 42.0 40 - 50 % MCV 88.5 80 - 100 FL MCH 29.6 26 - 34 PG MCHC 33.5 32.0 - 36.0 G/DL RDW 12.9 11 - 15 % Platelet Count 240 150 - 400 K/UL MPV 7.8 7 - 11 FL Neutrophils 60 41 - 77 % Lymphocytes 24 24 - 44 % Monocytes 11 4 - 12 % Eosinophils 4 0 - 5 % Basophils 1 0 - 2 % Absolute Neutrophil Count 4.60 1.8 - 7.0 K/UL Absolute Lymph Count 1.80 1.0 - 4.8 K/UL Absolute Monocyte Count 0.80 0 - 0.80 K/UL Absolute Eosinophil Count 0.30 0 - 0.45 K/UL Absolute Basophil Count 0.00 0 - 0.20 K/UL Specimen Performing Laboratory [facility] [address] [place] [address] * THYROID STIMULATING HORMONE-TSH (01/02/2018 1:30 PM) Component Value Ref Range TSH 0.880 0.35 - 5.00 MCU/ML Specimen Performing Laboratory [facility] [address] [place] [address] * COMPREHENSIVE METABOLIC PANEL (01/02/2018 1:30 PM) Component Value Ref Range Sodium 138 137 - 147 MMOL/L Potassium 4.2 3.5 - 5.1 MMOL/L Chloride 104 98 - 110 MMOL/L Glucose 99 70 - 100 MG/DL Blood Urea Nitrogen 19 7 - 25 MG/DL Creatinine 0.88 0.4 - 1.24 MG/DL Calcium 9.5 8.5 - 10.6 MG/DL Total Protein 6.3 6.0 - 8.0 G/DL Total Bilirubin 0.4 0.3 - 1.2 MG/DL Albumin 4.3 3.5 - 5.0 G/DL Alk Phosphatase 25 25 - 110 U/L AST (SGOT) 21 7 - 40 U/L CO2 29 21 - 30 MMOL/L ALT (SGPT) 17 7 - 56 U/L Anion Gap 5 3 - 12 eGFR Non >60 >60 mL/min Comment: The eGFR is not validated for use in drug dosing adjustments. Continue to use estimated creatinine clearance per dosing reference text. Please contact the Clinical Pharmacist for questions. eGFR >60 >60 mL/min Comment: The eGFR is not validated for use in drug dosing adjustments. Continue to use estimated creatinine clearance per dosing reference text. Please contact the Clinical Pharmacist for questions. Specimen Performing Laboratory [facility] [address] [facility] [place] [address] * DEVICE EVALUATION - REMOTE ICD (12/27/2017 10:31 AM) Component Value Ref Range RV Lead Model # [id number] [id number]-65cm RV Lead Serial # [id number] RV Lead Implant Date 06/11/2014 RV Lead Diaph. 10 Stimulation RV Lead Parts Puller [employer] RV Lead Investigational No RV Lead Fixation active fixation RV Lead Location RV low septum RV Lead Coil Single Generator Model # QUADRA KIARA [id number] Generator Serial # [id number] Generator Implnat Date 06/11/2014 ALMA/EOL Indicator Per Aquatics Instructor Generator Parts Puller [employer] Generator Investigational No Wireless Generator Yes Device Type ACCOUNT INSTALLATION SPECIALIST-D Atrial Lead Model # TENDRIL [id number]-52cm Atrial Lead Serial # [id number] Atrial Lead Implant Date 06/11/2014 Atrial Lead Diaph. NA Stimulation Atrial Lead Parts Puller [employer] Atrial Lead No Investigational Atrial Lead Fixation active fixation Atrial Lead Location right atrial appendage Atrial Lead Pin Connector IS1 Atrial Lead Polarity Bipolar LV Lead Model # QUARTET [id number]-86cm LV Lead Serial # [id number] LV Lead Implant Date 06/11/2014 (repositioned 07/26/14) LV Lead Location Other marginal young branch LV Lead Polarity Other IS-4 LV Lead Configuration LV1 TO 2 Other LV Lead [employer] Puller [employer] LV Lead Investigational No LV Lead Fixation active fixation LV Lead Location lateral vein LV Lead Polarity Mulitpolar Device Mode DDDR Lower Rate Limit 60 Upper Rate Limit 130 Sensor Rate Limit 110 Pace AV Delay 170 Sense AV Delay 120 VT Detect Rate (bpm) 171 bpm for 30 intervals VT Detect Rate Tx ATP&SHOCK ON FVT Detect Rate (bpm) 187 bpm for 20 intervals FVT Detect Rate Tx ATP&SHOCK ON VF Detect Rate (bpm) 250 bpm for 12 intervals VF Detect Rate Tx ATP&SHOCK ON Mode Switch (bpm) 160 pbm to DDIR, base rate 60 Mode Switch Status On Device Implanted By Poncho Ryan MD Pacemaker Dependant No Date of Last Programming 02/2017 Next Programming Check ~02/2018(anually/PRN) Due Date of Last 09/30/17 Interrogation Date of Last ICM 09/30/17 Evaluation HF Patient Yes Date of Last Remote Check 09/20/17 Next Remote Check Due 11/2017 Enrollment Date 02/12/2015 Date of baseline remote 02/12/2015 transmission AT/AF Daily Powersite Hours 3hr episode 6hr weekly Average Vent Rate during 100 AT/AF #BPM Average Vent Rate During 6 AT/AF #Hours Remote Monitoring? Yes Daily Powersite Threshld On Alert? Average Venticular Rate On AT/AF On/Off VF Detection/Therapy Off On EP Device Followed by REG Name Device [place] [employer] On Demand Transmitter Compatible EP Device Followed By MAC Remote Connectivity Cellular adaptor Device Remote Manual Yes Downloads Known Diagnosed AFib Yes On Anticoagulation No Specimen Performing Laboratory OTHER OUTSIDE LAB Narrative Current Monitoring Period: 12/20/17 through 03/19/18 [12/27/2017 10:31:42 AM - INÉS CEJA] Scheduled [employer]link transmission received.Device function appears normal. Events noted since 09/30/17: Atrial:41 AMS events for <1% of the time, available EGM's show AT, A-rates: 160-179 bpm. 1 SVT episode on 10/06/17 lasting 34 seconds, EGM shows 1:1 conduction, atrial driven at 179 bpm. Ventricular:3 NSVT lasting 4-8 seconds, two EGM shows sudden onset and termination of true VT, most recent event on 11/30/17 shows 1:1 conduction AT, V-rates: 176-210 bpm. Pt is BiVP >99% of the time. CorVue does not currently suggest fluid overload. Please see scanned data sheets for further review as needed.Pt is scheduled to follow up on 01/02/18 with REG at the [facility] office. from Last 3 Months
--- OUTSIDE RECORDS SUMMARY | 2018-02-18 19:52 | XMS REPORT | Encounter Summary ---
Author Author [facility] Organization [facility] Address Unknown Phone Unavailable Care Team Providers Care Special Service Representative Name Role Phone Sandi Hastings Unavailable Rodriguez Martino DO PCP Aisha Gabriel RN Unavailable Unavailable Sarah Ramires RN Unavailable Unavailable Alec Gallagher MD Unavailable Jaden Phillips MD Unavailable Alec Vega MD Unavailable Unavailable Quang Mistry MD Unavailable Encounter Details Date Type Department Care Team Description 02/04/2018 Pharmacy Visit [facility] [address] [place], [place] [address]Y [facility] [phone] [place], [place] [id number] Social History Tobacco Use Types Packs/Day Years [...]
--- OUTSIDE RECORDS SUMMARY | 2018-02-18 19:52 | XMS REPORT | Encounter Summary ---
Author Author [facility] Organization [facility] Address Unknown Phone Unavailable Care Team Providers Care Storage Wharfage Clerk Name Role Phone Sandi Hastings Unavailable Rodriguez Martino DO PCP Aisha Gabriel RN Unavailable Unavailable Sarah Ramires RN Unavailable Unavailable Alec Gallagher MD Unavailable Jaden Phillips MD Unavailable Alec Vega MD Unavailable Unavailable Quang Mistry MD Unavailable Encounter Details Date Type Department Care Team Description 01/10/2018 Pharm[facility] [id number] [place] [address] Social History Tobacco Use Types Packs/Day Years [...]
--- OUTSIDE RECORDS SUMMARY | 2018-02-18 19:53 | XMS REPORT | Encounter Summary ---
Author Author [facility] Organization [facility] Address Unknown Phone Unavailable Care Team Providers Care Decontamination Technician Name Role Phone Sandi Hastings Unavailable Rodriguez Martino DO PCP Aisha Gabreil RN Unavailable Unavailable Sarah Ramires RN Unavailable Unavailable Alec Gallagher MD Unavailable Jaden Phillips MD Unavailable Alec Vega MD Unavailable Unavailable Quang Mistry MD Unavailable Reason for Visit * Reason Comments Medication Refill Encounter Details Date Type Department Care Team Description 12/13/2017 Refill [facility] Quang Mistry MD Medication Refill [address] [place] [address] [place] [address] [place] [address] [phone] Social History Tobacco Use Types Packs/Day Years [...]
--- OUTSIDE RECORDS SUMMARY | 2018-02-18 19:53 | XMS REPORT | Encounter Summary ---
Author Author [facility] Organization [facility] Address Unknown Phone Unavailable Care Team Providers Care Sap Sd Analyst Name Role Phone Sandi Hastings Unavailable Rodriguez Martino DO PCP Aisha Gabriel RN Unavailable Unavailable Sarah Ramires RN Unavailable Unavailable Alec Gallagher MD Unavailable Jaden Phillips MD Unavailable Alec Vega MD Unavailable Unavailable Quang Mistry MD Unavailable Encounter Details Date Type Department Care Team Description 12/13/2017 Pharmacy Visit [facility] [address] [place] [address] Social History Tobacco Use Types Packs/Day Years [...]
--- OUTSIDE RECORDS SUMMARY | 2018-02-18 19:53 | XMS REPORT | Encounter Summary ---
Author Author [facility] Organization [facility] Address Unknown Phone Unavailable Care Team Providers Care Slip Cover Sewer Name Role Phone Sandi Hastings Unavailable Rodriguez Martino DO PCP Aisha Gabriel RN Unavailable Unavailable Sarah Ramires RN Unavailable Unavailable Alec Gallagher MD Unavailable Jaden Phillips MD Unavailable Alec Vega MD Unavailable Unavailable Quang Mistry MD Unavailable Encounter Details Date Type Department Care Team Description 12/14/2017 Pharmacy Visit [facility] [address] [place] [address] Social History Tobacco Use Types Packs/Day Years [...]
--- OUTSIDE RECORDS SUMMARY | 2018-02-18 19:53 | XMS REPORT | Encounter Summary ---
Author Author [facility] Organization [facility] Address Unknown Phone Unavailable Care Team Providers Care Reeling And Tubing Machine Operator Name Role Phone Sandi Hastings Unavailable Gunner Rodriguez GARRETT PCP Aisha Gabriel RN Unavailable Unavailable Sarah Ramires RN Unavailable Unavailable Alec Gallagher MD Unavailable Jaden Phillips MD Unavailable Alec Vega MD Unavailable Unavailable Quang Mistry MD Unavailable Encounter Details Date Type Department Care Team Description 01/02/2018 [facility] Cardiology Quang Mistry MD Encounter [address] [place] [address] [place] [address] [address] [place] [address] [phone] Social History Tobacco Use Types Packs/Day Years [...] at tablet bedtime as needed. carvedilol (COREG) 6.25 Take 6.25mg in the am and 270 tablet 3 2017 mg tablet 12.5mg in the pm. coQ10 (ubiquinol) 100 mg Take by mouth. cap MAGNESIUM HYDROXIDE Take by mouth. (MAGNESIA PO) melatonin 3 mg tab Take 5 mg by mouth at bedtime daily. Sometimes taking 10mg traZODone (DESYREL) 50 mg Take 50 mg by mouth as tablet directed. 50mg or 100mg as needed for sleep sacubitril/valsartan Take 1 tablet by mouth 60 tablet 4 12/13/2017 01/18/2018 (ENTRESTO) 24/26 mg twice daily. tablet as of this encounter Plan of Treatment Not on fileas of this encounter Results * TOTAL THYROXINE T4 (01/02/2018 1:30 PM) Component Value Ref Range T4 (Total) 8.6 6.1 - 12.3 MCG/DL Specimen Performing Laboratory [facility] [address] [place] [address] * THYROID STIMULATING HORMONE-TSH (01/02/2018 1:30 PM) Component Value Ref Range TSH 0.880 0.35 - 5.00 MCU/ML Specimen Performing Laboratory [facility] [address] [place] [address] * COMPREHENSIVE METABOLIC PANEL (01/02/2018 1:30 PM) [...] Performing Laboratory [facility] [address] [place] [address] * CBC AND DIFF (01/02/2018 1:30 PM) [...] Performing Laboratory [facility] [address] [place] [address] in this encounter Visit Diagnoses Diagnosis Dilated cardiomyopathy (HCC) Other primary cardiomyopathies Essential hypertension Unspecified essential hypertension NICM (nonischemic cardiomyopathy) (HCC) Other primary cardiomyopathies Paroxysmal A-fib (HCC) Atrial fibrillation
--- OUTSIDE RECORDS SUMMARY | 2018-02-18 19:53 | XMS REPORT | Encounter Summary ---
Author Author [facility] Address Unknown Phone Unavailable Care Team Providers Care Director Banking Name Role Phone Sandi Hastings Unavailable Gunner Rodriguez GARRETT PCP Aisha Gabriel RN Unavailable Unavailable Sarah Ramires RN Unavailable Unavailable Alec Gallagher MD Unavailable Jaden Phillips MD Unavailable Alec Vega MD Unavailable Unavailable Quang Mistry MD Unavailable Reason for Referral * Status Reason Specialty Diagnoses / Referred By Referred To Procedures Contact Contact New Request Procedures Quang Mistry MD CARDIOLOGY [address] [place] [address] Reason for Visit * Reason Comments Cardiac Eval 3 mo f/u- NICM Encounter Details Date Type Department Care Team Description 01/02/2018 Office Visit [facility] Cardiology Quang Mistry MD Cardiac Eval (3 mo f/u- [address] [place] [address] NICM) [place] [address] [place] [address] [place] [address] [phone] Social History Tobacco Use Types Packs/Day Years Used Date Former Smoker Cigarettes 1 10 Quit: 11/28/1993 Smokeless Tobacco: Never Used Alcohol Use Drinks/Week oz/Week Comments Yes 1 Cans of 0.6 2-6 beers nightly beer Sex Assigned at Date Recorded Not on file as of this encounter Last Filed Vital Signs Vital Sign Reading Time Taken Blood Pressure 96/62 01/02/2018 12:52 PM [employer] Pulse 77 01/02/2018 12:52 PM [employer] Temperature - - Respiratory Rate - - Oxygen Saturation - - Inhaled Oxygen - - Concentration Weight 65.3 kg (144 lb) 01/02/2018 12:52 PM [employer] Height 170.2 cm (5' 7") 01/02/2018 12:52 PM [employer] Body Mass Index 22.55 01/02/2018 12:52 PM [employer] in this encounter Functional Status Functional Status Response [...] impairment: No 06/12/2014 as of this encounter Instructions * Patient Instructions - Karlie Schultz RN - 01/02/2018 1:00 PM [employer] Please take Carvedilol 6.25mg in the am and 12.5mg in the pm. Please get labs today. Please make appt to see us in 3-4 months. in this encounter Progress Notes * Quang Mistry MD - 01/02/2018 1:00 PM [employer] Formatting of this note may be different from the original. Date of Service: 01/02/2018 Jihan Mccarthy is a 67 y[address] male. HPI Dr. Mccarthy returns for followup. We saw him about 3 months ago. 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 He has a biventricular defibrillator. He has been on carvedilol and Entresto. He had an echocardiogram in September that showed an ejection fraction 25% with no interval change. There were no valvular problems. He had mild to moderate mitral regurgitation. His PA pressure was normal. He has remained active. He denies angina, dyspnea, PND, orthopnea, palpitations, presyncope, syncope, and peripheral edema. He denies TIA, stroke and claudication. He has had some family stress. His appetite has been poor. He sometimes has poor intake and notices some fluctuations in his blood pressure. ([id number]) Vitals: 01/02/18 1252 BP: 96/62 Pulse: 77 Weight: 65.3 kg (144 lb) Height: 1.702 m (5' 7") Body mass index is 22.55 kg/m. Past Medical History Patient Active Problem List Diagnosis Date Noted Vision changes 09/22/2017 Paroxysmal A-fib ([facility]) 03/09/2017 Mechanical breakdown of cardiac pulse generator 11/11/20162015 [facility] Advisory for Premature Battery Depletion - addressed at OV 10/19/16 Peyronie's disease 03/16/2015 3 month duration with onset after hernia repair. Continued mild penile pain and ventral curvature Able to have intercourse and has good erections. NICM (nonischemic cardiomyopathy) ([facility]) 07/26/2014 Biventricular AICD malfunction 07/25/2014 LV Lead Dislodgement Biventricular implantable cardioverter-defibrillator in situ 07/22/2014 LBBB (left bundle branch block) 05/10/2014 CHF (congestive heart failure), NYHA class II ([facility]) 05/10/2014 Cardiomyopathy ([facility]) 05/09/2014 Hypertension 01/23/2014 Mitral valve regurgitation 01/23/2014 Left ventricular dysfunction 01/23/2014 Review of Systems Constitution: Negative. HENT: Negative. Eyes: Negative. Cardiovascular: Negative. Respiratory: Negative. Endocrine: Negative. Hematologic/Lymphatic: Negative. Skin: Negative. Musculoskeletal: Negative. Gastrointestinal: Negative. Genitourinary: Negative. Neurological: Negative. Psychiatric/Behavioral: The patient has insomnia. Allergic/Immunologic: Negative. All other systems reviewed and are negative. Review of systems is documented in the database. (DOC:[id number]) Physical Exam On examination, he is in no distress. He is 5 feet 7. Weight is down 5 pounds to 144. His BMI is 22.6. Blood pressure 96/62. Pulse is regular at 77 beats per minute. His rhythm is sinus. His venous pressure is 6-8 cm. There is no edema. Lungs are clear. There is no wheeze or rhonchi. PMI is not felt. Heart sounds are normal. I do not hear any gallops, murmurs, or rubs. There is no hepatomegaly. There are no abdominal bruits. Bowel sounds are normal. There is no icterus. There are no focal neurologic deficits. Distal pulses are 2+ bilaterally. ([id number]) Cardiovascular Studies EKG shows atrial sensed ventricular paced rhythm. He has premature ventricular contraction. (DOC:[id number]) Problems Addressed Today Encounter Diagnoses Name Primary? Dilated cardiomyopathy (HCC) Yes Essential hypertension NICM (nonischemic cardiomyopathy) (HCC) Paroxysmal A-fib (HCC) Assessment and Plan Dr. Mccarthy is stable from a cardiac perspective. We are going to increase his evening dose of carvedilol to 12.5 mg and continue with the 6.25 mg in the morning. We are going to check some lab work today. We will see him back in 3- 4 months' time. If I can be of assistance sooner, please do not hesitate to let me know. I think he is pretty well compensated from a cardiac perspective. I would like to continue with his current treatment plan. (DOC:[id number]) Current Medications (including today's revisions) ALPRAZolam (XANAX) 0.5 mg tablet Take 0.5 mg by mouth at bedtime as needed. carvedilol (COREG) 6.25 mg tablet Take 1 tablet by mouth twice daily. Take one tab every morning. coQ10 (ubiquinol) 100 mg cap Take by mouth. MAGNESIUM HYDROXIDE (MAGNESIA PO) Take by mouth. melatonin 3 mg tab Take 5 mg by mouth at bedtime daily. Sometimes taking 10mg sacubitril/valsartan (ENTRESTO) 24/26 mg tablet Take 1 tablet by mouth twice daily. traZODone (DESYREL) 50 mg tablet Take 50 mg by mouth as directed. 50mg or 100mg as needed for sleep in this encounter Plan of Treatment Not on fileas of this encounter Results * THYROID STIMULATING HORMONE-TSH (01/02/2018 1:30 PM) Component Value Ref Range TSH 0.880 0.35 - 5.00 MCU/ML Specimen Performing Laboratory [facility] [address] [place] [address] * TOTAL THYROXINE T4 (01/02/2018 1:30 PM) Component Value Ref Range T4 (Total) 8.6 6.1 - 12.3 MCG/DL Specimen Performing Laboratory [facility] [address] [place] [address] * COMPREHENSIVE METABOLIC PANEL (01/02/2018 1:30 PM) [...] Pharmacist for questions. Specimen Performing Laboratory [facility] [address] [place] [address] * CBC AND DIFF (01/02/2018 1:30 PM) [...] Performing Laboratory [facility] [address] [place] [address] in this encounter Visit Diagnoses Diagnosis Dilated cardiomyopathy (HCC) - Primary Other primary cardiomyopathies Essential hypertension Unspecified essential hypertension NICM (nonischemic cardiomyopathy) (HCC) Other primary cardiomyopathies Paroxysmal A-fib (HCC) Atrial fibrillation
--- OUTSIDE RECORDS SUMMARY | 2018-02-18 19:53 | XMS REPORT | Encounter Summary ---
Author Author [facility] Organization [facility] Address Unknown Phone Unavailable Care Team Providers Care Outreach Rep Name Role Phone Sandi Hastings Unavailable GunnerRodriguez PCP Aisha Gabriel RN Unavailable Unavailable Sarah Ramires RN Unavailable Unavailable Alec Gallagher MD Unavailable Jaden Phillips MD Unavailable Alec Vega MD Unavailable Unavailable Quang Mistry MD Unavailable Encounter Details Date Type Department Care Team Description 12/20/2017 [facility] Cardiology Quang Mistry MD Encounter Remote Device Check [address] [facility] [phone] [address] [place] [address] [phone] Social History Tobacco Use Types Packs/Day Years [...] by mouth at tablet bedtime as needed. coQ10 (ubiquinol) 100 mg Take by mouth. cap MAGNESIUM HYDROXIDE Take by mouth. (MAGNESIA PO) melatonin 3 mg tab Take 5 mg by mouth at bedtime daily. Sometimes taking 10mg traZODone (DESYREL) 50 mg Take 50 mg by mouth as tablet directed. 50mg or 100mg as needed for sleep aspirin 325 mg tablet Take 1 tablet by mouth 90 tablet 3 09/02/2017 01/02/2018 daily. Take with food. carvedilol (COREG) 6.25 Take 1 tablet by mouth 180 tablet 3 201601/02/2018 mg tablet twice daily. Take one tab every morning. sacubitril/valsartan Take 1 tablet by mouth 60 tablet 4 12/13/2017 01/18/2018 (ENTRESTO) 24/26 mg twice daily. tablet as of this encounter Plan of Treatment Not on fileas of this encounter Results * DEVICE EVALUATION - REMOTE ICD (12/27/2017 10:31 AM) Component Value Ref Range RV Lead Model # [id number]-[id number] RV Lead Serial # [id number] RV Lead Implant Date 06/11/2014 RV Lead Diaph. 10 Stimulation RV Lead Planning Coordinator [employer] [place] RV Lead Investigational No RV Lead Fixation active fixation RV Lead Location RV low septum RV Lead Coil Single Generator Model # QUADRA JEFFURA [id number] Generator Serial # [id number] Generator Implnat Date 06/11/2014 ALMA/EOL Indicator Per Director Underwriter Sales Generator Planning Coordinator [facility] 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 NA Stimulation Atrial Lead Planning Coordinator [facility] [facility] Atrial Lead No Investigational Atrial Lead Fixation active fixation Atrial Lead Location right atrial appendage Atrial Lead Pin Connector IS1 Atrial Lead Polarity Bipolar LV Lead Model # QUARTET [id number]-86cm LV Lead Serial # [id number] LV Lead Implant Date 06/11/2014 (repositioned 07/26/14) LV Lead Location Other marginal young branch LV Lead Polarity Other IS-4 LV Lead Configuration LV1 TO 2 Other LV Lead Planning Coordinator [facility] [facility] LV Lead Investigational No [...] of baseline remote 02/12/2015 transmission AT/AF Daily Dexter Hours 3hr episode 6hr weekly Average Vent Rate during 100 AT/AF #BPM Average Vent Rate During 6 AT/AF #Hours Remote Monitoring? Yes Daily Dexter Threshld On Alert? Average Venticular Rate On AT/AF On/Off VF Detection/Therapy Off On EP Device Followed by REG Name Device [place] On Demand Transmitter Compatible EP Device Followed [...] up on 01/02/18 with REG at the office. in this encounter Visit Diagnoses Diagnosis Cardiomyopathy (HCC) Other primary cardiomyopathies
[2018-02-18 20:00] LABS: BASOPHILS % (AUTO) 0 % (0-10); EOSINOPHILS # (AUTO) 0.2 10^3/uL (0.0-0.3); EOSINOPHILS % (AUTO) 2 % (0-10); HEMATOCRIT 44 % (40-54); LYMPHOCYTES # (AUTO) 1.9 X 10^3 (1.0-4.0); LYMPHOCYTES % (AUTO) 22 % (12-44); MEAN CORPUSCULAR HEMOGLOBIN 30 PG (25-34); MEAN CORPUSCULAR HGB CONC 34 G/DL (32-36); MEAN CORPUSCULAR VOLUME 88 FL (80-99); MEAN PLATELET VOLUME 9.4 FL (7.4-10.4); MONOCYTES # (AUTO) 1.2 X 10^3 (0.0-1.0); MONOCYTES % (AUTO) 13 % (0-12); NEUTROPHILS # (AUTO) 5.5 X 10^3 (1.8-7.8); NEUTROPHILS % (AUTO) 63 % (42-75); PLATELET COUNT 261 10^3/uL (130-400); RED BLOOD COUNT 5.05 10^6/uL (4.35-5.85); RED CELL DISTRIBUTION WIDTH 12.6 % (10.0-14.5); WHITE BLOOD COUNT 8.8 10^3/uL (4.3-11.0)
[2018-02-18 20:10] LABS: INR 1.1 (0.8-1.4); PROTHROMBIN TIME PATIENT 13.9 SEC (12.2-14.7)
--- NOTE | 2018-02-18 20:11 | Diagnostic Imaging Report ---
INDICATION: Stroke protocol. COMPARISON: No prior examination is available for comparison. EXAMINATION: Single view of the chest was obtained. FINDINGS: The heart size is normal. Mediastinum is unremarkable. There is no pleural effusion or pneumothorax. There is air-trapping compatible with COPD. Pacemaker overlies the left hemithorax. IMPRESSION: 1. COPD. 2. No acute cardiopulmonary abnormality. Dictated by: Dictated on workstation # [id number]
--- NOTE | 2018-02-18 20:12 | Diagnostic Imaging Report ---
INDICATION: Headache and light sensitivity. TECHNIQUE: Multiple contiguous axial images were obtained through the brain without the use of intravenous contrast. FINDINGS: The ventricles and sulci are within normal limits. There is no hydrocephalus or cerebral edema. There is no midline shift or mass effect. There is no intracranial mass, hemorrhage, or extra-axial fluid collection. The visualized paranasal sinuses and mastoid air cells are clear. There are no regional areas of decreased attenuation appreciated to suggest an acute CVA. IMPRESSION: No acute intracranial abnormality. Dictated by: Dictated on workstation # [id number]
[2018-02-18 20:13] LABS: FIBRIN DEGRADATION PRODUCTS 0.48 UG/ML (0.00-0.49)
[2018-02-18 20:21] LABS: ALANINE AMINOTRANSFERASE 29 U/L (0-55); ALBUMIN 4.8 GM/DL (3.2-4.5); ALKALINE PHOSPHATASE 29 U/L (40-136); BILIRUBIN,TOTAL 1.2 MG/DL (0.1-1.0); BUN/CREATININE RATIO 19; CALCIUM 9.8 MG/DL (8.5-10.1); CARBON DIOXIDE 20 MMOL/L (21-32); CHLORIDE 108 MMOL/L (98-107); CREATININE SERUM 1.08 MG/DL (0.60-1.30); GFR ESTIMATED > 60; GLUCOSE 106 MG/DL (70-105); POTASSIUM 3.8 MMOL/L (3.6-5.0); SODIUM 143 MMOL/L (135-145); TOTAL PROTEIN 7.1 GM/DL (6.4-8.2)
--- NOTE | 2018-02-18 20:22 | ED Neurological Problem ---
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 patient denies vision or weakness Nursing Sepsis Screen: No Definite Risk Source: patient Exam Limitations: no limitations History of Present Illness Date Seen by Provider: Feb 18, 2018 Time Seen by Provider: 19:50 Initial Comments This 67-year-old gentleman presents to the emergency room by private vehicle with complaint of severe intermittent right-sided headache for about the last 90 minutes. He was driving home from [place] within symptoms started. The pain is a sharp pain on the right side of the head in the frontal and periorbital regions radiating back to the temporal region. Nursing staff felt he had some subtle confusion upon presentation which may have also been distraction related to pain. Patient denied any focal neurologic deficits. He does not historically have headaches and has never had a headache with this intensity. The sharp pains occur every few minutes and last for several seconds. He denies any drug or alcohol use. He was in [place] moving furniture and performed some physically strenuous activity today. He admits to not eating and drinking well. He has some relationship difficulties and admits to significant stress. Stroke activation was paged and patient was promptly taken to CT. Patient reports having a right lower extremity injury with bruising last week. Allergies and Home Medications Allergies Coded Allergies: metronidazole (Verified Allergy, Intermediate, RASH, 07/07/17) Uncoded Allergies: antivenom (Allergy, Unknown, 06/27/14) Home Medications Alprazolam 0.5 Mg Tablet, 0.5 MG PO HS, (Reported) Carvedilol 12.5 Mg Tablet, 12.5 MG PO AM, (Reported) TAKES 1/2 OF A (25 MG) TABLET Carvedilol 25 Mg Tablet, 25 MG PO HS, (Reported) Magnesium 250 Mg Tablet, 250 MG PO DAILY, (Reported) Melatonin/Pyridoxine 1 Each Tablet, 5 MG PO HS, (Reported) Multivitamin 1 Each Tablet, 1 TAB PO DAILY, (Reported) Trazodone HCl 100 Mg Tablet, 100 MG PO HS, (Reported) Ubidecarenone 100 Mg Capsule, 100 MG PO DAILY, (Reported) Patient Home Medication List Home Medication List Reviewed: Yes Constitutional: no symptoms reported Eyes: No Symptoms Reported Ears, Nose, Mouth, Throat: no symptoms reported Respiratory: no symptoms reported Cardiovascular: no symptoms reported Gastrointestinal: no symptoms reported Genitourinary: no symptoms reported Musculoskeletal: no symptoms reported Skin: no symptoms reported Psychiatric/Neurological: See HPI Endocrine: No Symptoms Reported Past Iqtljlr-Iszrkb-Bqowra Hx Patient Social History Alcohol Use: Denies Use Recreational Drug Use: No Smoking Status: Former Smoker Former Smoker, Quit: Jul 07, 1986 Recent Foreign Travel: No Contact w/Someone Who Travel: No Recent Infectious Disease Expo: No Recent Hopitalizations: Yes (05/2017-DIVERTICULITIS) Physical Abuse: No Sexual Abuse: No Immunizations Up To Date PED Vaccines UTD: Yes Seasonal Allergies Seasonal Allergies: No Surgeries History of Surgeries: Yes (BILAT ING HERNIA, PACEMAKER X2) Surgeries: Abdominal, Appendectomy, Pacemaker, Tonsillectomy Respiratory History of Respiratory Disorde: No Cardiovascular History of Cardiac Disorders: Yes (PACEMAKER; HX LEFT BUNDLE BRANCH BLOCK, congestive heart failure) Cardiac Disorders: Irregular Heartbeat Neurological History of Neurological Disord: No Reproductive System Hx Reproductive Disorders: No Sexually Transmitted Disease: No HIV/AIDS: No Genitourinary History of Genitourinary Disor: Yes Genitourinary Disorders: Kidney Stones Gastrointestinal History of Gastrointestinal Di: Yes Gastrointestinal Disorders: Diverticulosis Musculoskeletal History of Musculoskeletal Dis: Yes Musculoskeletal Disorders: Arthritis Endocrine History of Endocrine Disorders: No HEENT History of HEENT Disorders: No Cancer History of Cancer: Yes Cancer: Skin Did You Recieve Any Treatments: No Psychosocial History of Psychiatric Problem: Yes (INSOMNIA) Behavioral Health Disorders: Sleep Difficulties Suicide Risk Score: 0 Integumentary History of Skin or Integumenta: No (HX SKIN CANCER) Blood Transfusions History of Blood Disorders: No Adverse Reaction to a Blood Tr: No (N/A) Family Medical History Family Medial History: Diabetes mellitus G8 SISTER Physical Exam Vital Signs Vital Signs - First Documented 02/18/18 02/18/18 19:50 19:51 Temp 98.2 Pulse 93 Resp 18 B/P (MAP) 137/90 (106) Pulse Ox 99 O2 Delivery Room Air Capillary Refill : Less Than 3 Seconds General Appearance: WD/WN, no apparent distress HEENT: PERRL/EOMI, normal ENT inspection Neck: normal inspection Respiratory: lungs clear, normal breath sounds, no respiratory distress, no accessory muscle use Cardiovascular: regular rate, rhythm, no edema, no murmur Gastrointestinal: normal bowel sounds, non tender, soft Extremities: normal inspection, no pedal edema Neurologic/Psychiatric: executive chairman II-XII nml as tested, no motor/sensory deficits, alert, normal mood/affect, other (disoriented to month but otherwise alert and oriented.) Crainal Nerves: normal hearing, normal speech, PERRL Coordination/Gait: normal finger to nose, normal gait Motor/Sensory: no motor deficit, no sensory deficit Skin: normal color, warm/dry Stroke NIH Stroke Scale Assessment Select: Post CT Level of Consciousness: 0=Alert (0), Level of Consciousness- Questions: 1=Answers one question (1), LOC Commands: 0=Performs both tasks (0), Gaze: Normal (0), Visual Thao: 0=No visual loss (0), Facial Movement (Facial Paresis): 0=Normal symmetrical mnt (0), Motor Function-Arms Right: 0=No drift (0 ), Motor Function-Arms Left: 0=No drift (0), Motor Function-Legs Right: 0=No drift (0), Motor Function-Legs Left: 0=No drift (0), Limb Ataxia: 0=Absent (0), Sensory: 0=Normal:no loss (0), Best Language: 0=No aphasia (0), Dysarthria: 0= Normal (0), Extinction & Inattention: 0=No abnormality (0), Total: 1 Progress/Results/Core Measures Results/Orders Lab Results Laboratory Tests Test 02/18/18 19:52 02/18/18 20:12 02/18/18 20:35 Range/Units White Blood Count 8.8 4.3-11.0 10^3/uL Red Blood Count 5.05 4.35-5.85 10^6/uL Hemoglobin 15.0 13.3-17.7 G/DL Hematocrit 44 40-54 % Mean Corpuscular Volume 88 80-99 FL Mean Corpuscular Hemoglobin 30 25-34 PG Mean Corpuscular Hemoglobin Concent 34 32-36 G/DL Red Cell Distribution Width 12.6 10.0-14.5 % Platelet Count 261 130-400 10^3/uL Mean Platelet Volume 9.4 7.4-10.4 FL Neutrophils (%) (Auto) 63 42-75 % Lymphocytes (%) (Auto) 22 12-44 % Monocytes (%) (Auto) 13 H 0-12 % Eosinophils (%) (Auto) 2 0-10 % Basophils (%) (Auto) 0 0-10 % Neutrophils # (Auto) 5.5 1.8-7.8 X 10^3 Lymphocytes # (Auto) 1.9 1.0-4.0 X 10^3 Monocytes # (Auto) 1.2 H 0.0-1.0 X 10^3 Eosinophils # (Auto) 0.2 0.0-0.3 10^3/uL Basophils # (Auto) 0.0 0.0-0.1 10^3/uL Prothrombin Time 13.9 12.2-14.7 SEC INR Comment 1.1 0.8-1.4 Activated Partial Thromboplast Time 27 24-35 SEC D-Dimer 0.48 0.00-0.49 UG/ML Sodium Level 143 135-145 MMOL/L Potassium Level 3.8 3.6-5.0 MMOL/L Chloride Level 108 H 98-107 MMOL/L Carbon Dioxide Level 20 L 21-32 MMOL/L Anion Gap 15 H 5-14 MMOL/L Blood Urea Nitrogen 20 H 7-18 MG/DL Creatinine 1.08 0.60-1.30 MG/DL Estimat Glomerular Filtration Rate > 60 BUN/Creatinine Ratio 19 Glucose Level 106 H 70-105 MG/DL Calcium Level 9.8 8.5-10.1 MG/DL Total Bilirubin 1.2 H 0.1-1.0 MG/DL Aspartate Amino Transf (AST/SGOT) 30 5-34 U/L Alanine Aminotransferase (ALT/SGPT) 29 0-55 U/L Alkaline Phosphatase 29 L 40-136 U/L Troponin I < 0.30 <0.30 NG/ML Total Protein 7.1 6.4-8.2 GM/DL Albumin 4.8 H 3.2-4.5 GM/DL Serum Alcohol < 10 <10 MG/DL Glucometer 86 70-110 MG/DL Urine Color YELLOW Urine Clarity SLIGHTLY CLOUDY Urine pH 8 5-9 Urine Specific [place] 1.015 L 1.016-1.022 Urine Protein NEGATIVE NEGATIVE Urine Glucose (UA) NEGATIVE NEGATIVE Urine Ketones 4+ H NEGATIVE Urine Nitrite NEGATIVE NEGATIVE Urine Bilirubin NEGATIVE NEGATIVE Urine Urobilinogen NORMAL NORMAL MG/DL Urine Leukocyte Esterase 1+ H NEGATIVE Urine RBC (Auto) NEGATIVE NEGATIVE Urine RBC RARE /HPF Urine WBC 0-2 /HPF Urine Crystals NONE /LPF Urine Bacteria TRACE /HPF Urine Casts NONE /LPF Urine Mucus LARGE H /LPF Urine Culture Indicated NO My Orders Orders - ZEYNEP FIGUEROA MD Cbc With Automated Diff (02/18/18 19:54) Protime With Inr (02/18/18 19:54) Partial Thromboplastin Time (02/18/18 19:54) Comprehensive Metabolic Panel (02/18/18 19:54) Fibrin Degradation Products (02/18/18 19:54) Troponin I (02/18/18 19:54) Ua Culture If Indicated (02/18/18 19:54) Chest 1 View, Ap/Pa Only (02/18/18 19:54) Ekg Tracing (02/18/18 19:54) Accucheck Stat ONCE (02/18/18 19:54) Saline Lock/Iv-Start (02/18/18 19:54) Saline Lock/Iv-Start (02/18/18 19:54) Vital Signs Stroke Patient Q15M (02/18/18 19:54) Ct Head Wo-R/O Stroke (02/18/18 19:54) O2 (02/18/18 19:54) Intake & Output 06,14,22 (02/18/18 19:54) Monitor-Rhythm Ecg Trace Only (02/18/18 19:54) Dysphagia Screening Tool (02/18/18 19:54) Alcohol (02/18/18 20:26) Saline Lock/Iv-Start (02/18/18 20:41) Ns Iv 1000 Ml (Sodium Chloride 0.9%) (02/18/18 20:41) Vital Signs/I&O Vital Sign - Last 12Hours 02/18/18 02/18/18 02/18/18 02/18/18 19:50 19:51 19:58 21:42 Temp 98.2 Pulse 93 86 88 Resp 18 16 16 B/P (MAP) 137/90 (106) 139/82 Pulse Ox 99 100 98 98 O2 Delivery Room Air Room Air Blood Pressure Mean: 106 Point of Care Testing Finger Stick Blood Glucose: 86 Progress Note : Progress Note Stroke activation was paged. Workup was relatively unremarkable except for some evidence of dehydration with elevated BUN and ketones in the urine. A liter of IV fluids was administered. Patient had an NIH stroke score of 1 which was related to misidentifying the month. He stated February instead of January. Headache was improving throughout his ER stay, especially after IV hydration. Patient had a strong desire to return home. He was not a TPA candidate as he had no significant measurable neurologic deficits. Therefore, stroke was not suspected. Patient was offered CT angiogram to evaluate head and neck vasculature. 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 However, he declines further evaluation and requested dismissal home. He was discharged with return precautions. ECG Initial ECG Impression Date: Feb 18, 2018 Initial ECG Impression Time: 20:02 Initial ECG Rate: 85 Comment Atrial sensed ventricular paced rhythm. Nonspecific ST changes. No ischemic ST elevation or depression. Diagnostic Imaging Diagonstic Imaging: CT Plain Films/CT/US/NM/MRI: head Comments CT head viewed by me and report reviewed. See report below: NAME: BRIANNE ZELAYA MED REC#: [id number] PT STATUS: REG ER : 1950 PHYSICIAN: ZEYNEP FIGUEROA MD ADMIT DATE: 02/18/18/ER Draft Date of Exam:02/18/18 CT HEAD WO-R/O STROKE INDICATION: Headache and light sensitivity. TECHNIQUE: Multiple contiguous axial images were obtained through the brain without the use of intravenous contrast. FINDINGS: The ventricles and sulci are within normal limits. There is no hydrocephalus or cerebral edema. There is no midline shift or mass effect. There is no intracranial mass, hemorrhage, or extra-axial fluid collection. The visualized paranasal sinuses and mastoid air cells are clear. There are no regional areas of decreased attenuation appreciated to suggest an acute CVA. IMPRESSION: No acute intracranial abnormality. Dictated on workstation # [id number] Dict: 02/18/182006 Trans: 02/18/182010 SHERIDAN [id number] Interpreted by: CHELSI PRINCE MD Diagonstic Imaging: Xray Plain Films/CT/US/NM/MRI: chest Comments Chest x-ray viewed by me and report reviewed. See report below: NAME: BRIANNE ZELAYA MED REC#: [id number] PT STATUS: REG ER : 1950 PHYSICIAN: ZEYNEP FIGUEROA MD ADMIT DATE: 02/18/18/ER Draft Date of Exam:02/18/18 CHEST 1 VIEW, AP/PA ONLY INDICATION: Stroke protocol. COMPARISON: No prior examination is available for comparison. EXAMINATION: Single view of the chest was obtained. FINDINGS: The heart size is normal. Mediastinum is unremarkable. There is no pleural effusion or pneumothorax. There is air-trapping compatible with COPD. Pacemaker overlies the left hemithorax. IMPRESSION: 1. COPD. 2. No acute cardiopulmonary abnormality. Dictated on workstation # [id number] Dict: 02/18/182007 Trans: 02/18/182010 PJE [id number] Interpreted by: CHELSI PRINCE MD Departure Impression Impression: Primary Impression: Right-sided headache Additional Impressions: Dehydration Acute stress reaction Disposition: 01 HOME, SELF-CARE Condition: Improved Departure-Patient Inst. Decision time for Depature: 21:22 Referrals: MERLIN BENITEZ DO (PCP/Family) Primary Care Physician Patient Instructions: Headache, Adult (DC) Add. Discharge Instructions: Drink plenty of clear liquids and eat a well-balanced diet. You may use your pain medications as previously prescribed for headache. Return to care if symptoms worsen. Follow up with your primary care provider as soon as possible. All discharge instructions reviewed with patient and/or family. Voiced understanding. Copy Copies To 1: MERLIN BENITEZ JOSHUA T MD Feb 18, 2018 20:21
[2018-02-18] MEDS ORDERED: NS IV 1000 ML 1,000 ML IV SCH (20:41)
[2018-02-18 20:42] LABS: BILIRUBIN,URINE NEGATIVE (NEGATIVE); CLARITY,URINE SLIGHTLY CLOUDY; COLOR,URINE YELLOW; GLUCOSE, URINE (UA) NEGATIVE (NEGATIVE); KETONES,URINE 4+ (NEGATIVE); LEUKOCYTE ESTERASE ,URINE 1+ (NEGATIVE); NITRITE,URINE NEGATIVE (NEGATIVE); PH,URINE 8 (5-9); PROTEIN,URINE NEGATIVE (NEGATIVE); UROBILINOGEN,URINE NORMAL (NORMAL)
[2018-02-18 20:50] LABS: BACTERIA,URINE TRACE /HPF; RBC,URINE RARE /HPF; WBC,URINE 0-2 /HPF
[2018-02-18 21:42] VITALS: BP 139/82
== END 2018-02-18 21:35 | disposition home or self-care (01) ==
LOC: EDUNIT# 19:47 → ER 19:48
DX: E86.0 Dehydration (principal); F43.0 Acute stress reaction; R51 Headache; G47.00 Insomnia, unspecified; Z90.49 Acquired absence of other specified parts of digestive tract; Z90.89 Acquired absence of other organs; Z95.0 Presence of cardiac pacemaker; Z87.442 Personal history of urinary calculi; Z85.828 Personal history of other malignant neoplasm of skin; Z87.891 Personal history of nicotine dependence; Z88.1 Allergy status to other antibiotic agents; Z88.8 Allergy status to other drugs, medicaments and biological substances
CPT/HCPCS: 36415; 70450; 71045; 80053; 80320; 81000; 82962; 84484; 85025; 85379; 85610; 85730; 93005; 93041